=== PATIENT | female | born 1945 | race Caucasian/White ===

== ENCOUNTER → 2016-09-28 | Outpatient (CLI) | payer OTHER ==
[~2016-09-28] VITALS: Ht 160 cm; Wt 71.2 kg
[~2016-09-28] MED LIST: AMBIEN5 MG PO; CALCIUM 600 +1 EAC1 PO; ENDOCET 10-3251 EACH PO; FISH OIL 1,2001 EAC4 PO; LEXAPRO 10 MG T10 M1 PO; LIDODERM 5%1 PATC1 TOP; LOPRESSOR25; LOPRESSOR50 PO; LYRICA 50 MG50 MG PO; LYRICA 75 MG CA75 MG PO; MAGNESIUM400 MG PO; MULTIVITAMINS1 EAC7 PO; NEURONTIN600 MG PO; NORTRIPTYLINE H25 M3 PO; NORTRIPTYLINE H50 MG PO; OMEPRAZOLE40 MG PO; OXYCONTIN CR 2020 M1 PO; OXYCONTIN10 M1 PO; OXYCONTIN20 M1 PO; OXYCONTIN20 MG PO; OXYCONTIN30 MG PO; PERCOCET 10-321 EACH PO; PERCOCET 7.5-31 EACH PO; SUPER B COMPLE1 EAC2 PO; TOPROL XL25 MG PO; VITAMIN B 12 PO; VITAMIN D10000 UNIT PO
--- NOTE | ~2016-09-28 | HPC ---
[facility] [place] [address] PAIN MANAGEMENT CONSULTATION Name: THIEN MAIER Marcos Room #: REG [facility]..#: [id number] Admission: 09/28/16 Attend Phys: Colin Doyle DO Discharge: Date of : 47 Report #: [id number] THIS REPORT FOR: //name// CC: Colin Quinteros MD DATE OF SERVICE: 09/28/2016 REFERRING PHYSICIAN: Concetta Quinteros M.D. CHIEF COMPLAINT: Postherpetic neuralgia. HISTORY OF PRESENT ILLNESS: As you know, the patient is a very pleasant 71-year-old female who returns today in followup visit for continuation of medication therapy. She is placing pain score 4/10. States her pain is constant, tenderness in sensation, exacerbated with stretch and light touch and improves with medications. She is denying any specific changes in her overall pain. She does feel the medications working beneficially, providing upwards of 80% improvement in symptoms. She returns today requesting refill on the medication for the next 3 months. ALLERGIES: SULFA. CURRENT MEDICATIONS: Lyrica 75 mg p.o. at bedtime, Percocet 10/325 one tab every 8 hours p.r.n for pain, gabapentin 600 mg 2 tabs p.o. q.a.m. and 3 tabs p.o. at bedtime, Lexapro 10 mg per day, metoprolol 50 mg twice a day and zolpidem 5 mg p.o. at bedtime. SOCIAL HISTORY: The patient denies tobacco, alcohol or IV or illicit drug use. She is retired, retired years ago, unaccompanied today. PHYSICAL EXAMINATION: VITAL SIGNS: Blood pressure 136/70, pulse 63 and respiratory rate 16 and unlabored. The patient 99% on room air. Height 5 feet 3 inches tall, weight 157 pounds and BMI calculated 27.8. GENERAL: Well developed, well nourished and well hydrated 71-year-old female appearing stated age, placing current pain score at around 4/10. HEENT: Normocephalic and atraumatic. Pupils equal, round and reactive to light. Extraocular muscles are intact. Sclerae nonicteric, without injection. EXTREMITIES: Show no clubbing, no cyanosis and no edema. MUSCULOSKELETAL: There is again palpatory tenderness over the distribution of the previous outbreak of herpes zoster. There is anterior chest wall pain, clavicular area, mainly with some allodynia radiating to the axilla. There is no rash, lesions or ulcerations over the area. No changes in the skin color or texture. [address] [address] PAIN MANAGEMENT CONSULTATION Name: DARRIONTHIEN Room #: REG [facility] [place].#: [id number] Admission: 09/28/16 Attend Phys: Colin Doyle DO Discharge: Date of : 46 Report #: [id number] ASSESSMENT: 1. Postherpetic neuralgia. 2. Chronic intractable pain. 3. Opioid dependency. PLAN: 1. The patient has returned today in followup visit for continuation of medication therapy. The patient feels medications working beneficially for pain control, providing somewhat between 70% and 80% improvement overall pain. She is denying any side effects from medication, wishing to continue the medication at this time. 2. The patient was provided a prescription of Lyrica 75 mg dose 1 tab p.o. at bedtime. It is understood the patient is taking both Lyrica and gabapentin, very similar molecules but without the addition of the Lyrica, the patient's pain was uncontrolled. The low dose of Lyrica added to the gabapentin actually improved the patient's pain and reduced the side effects she was receiving from the gabapentin. She wishes to continue on this medication. She was given a prescription of #30 tablets with five refills six months' worth of medication. 3. The patient was provided a prescription for gabapentin 600 mg dose 1 tab p.o. b.i.d. I have given the patient #150 tablets 2 in the morning and 3 at night. She was given this with 5 refills. 4. The patient was provided a prescription of oxycodone 10/325 one tab p.o. t.i.d., #90 with releases of today, 4 weeks from today, 8 weeks from today and 3 months' worth of medication. 5. The patient and I did have a discussion today about controlled substances specifically, the oxycodone and the Lyrica. We must see the patient on a quarterly basis to fill the oxycodone specifically. We were able to still continue to write Lyrica with multiple refills, but this may ultimately changed as it has been scheduled as a scheduled 4 drug. At present, we can write for long-term therapy this along with the gabapentin. She will need to be seen on a quarterly basis for her opioids. 6. We reviewed the fact that opiate medications are being used to provide analgesia adequate to support activities of daily living, not attempting to achieve a specific pain score on the 0-10 Visual Analog Scale. The current opiate medications are providing sufficient analgesia to allow the patient to participate in activities of daily living. The patient is not exhibiting any aberrant behavior suggestive of drug diversion. The patient is not having any adverse reactions to medications. The patient is not suffering from daytime somnolence or mental acuity changes. The patient is managing opiate-induced constipation with appropriate gjaw-axz-jeeqeax agents and dietary considerations. The patient was counseled on concern for caution with operating a motor vehicle while using opiate medications. A physical exam was performed and the patient's functional status was evaluated. All patients with back pain were advised against the bed rest greater than 4 [facility] [address] [place] [address] PAIN MANAGEMENT CONSULTATION Name: THIEN MAIER Room #: REG [facility]#: [id number] Admission: 09/28/16 Attend Phys: Colin Doyle DO Discharge: Date of : 46 Report #: [id number] days and were advised to return to normal activities. Pain score assessment was noted and the treatment plan was reviewed with the patient. All current medications, both prescribed and OTC were reviewed and reconciled on the electronic medical record. Tobacco screening was accomplished and smoking cessation was advised when indicated. BMI was noted and diet/exercise modification was recommended for all patients following outside normal parameters. I reviewed with the patient today their responsibilities to safeguard prescription medications, reviewed their responsibility to utilize medications only as prescribed by the physician. They are to seek and receive pain medications only from 1 physician group ( [facility]). They are to use 1 pharmacy and keep the clinic informed if they change pharmacies. Their responsibilities include making followup visits in a timely fashion and to avoid abrupt discontinuation of medication usage. Their responsibilities further include bringing their medications (bottles from the pharmacy with residual pills) to the visit for possible confirmation of pill counts and the patient understands it is their responsibility to submit to random drug screens to ensure both that the medications prescribed are present, and that no other controlled substances are present. All prescriptions provided today were generated electronically. <ELECTRONICALLY SIGNED> By: Colin Doyle DO 10/04/16 1243 [id number] 1004 Colin Doyle DO /nt
[2016-09-28 09:05] VITALS: BP 136/70
== END | disposition home or self-care (01) ==
LOC: PAIN 07:06
DX: B02.29 Other postherpetic nervous system involvement (principal); G89.29 Other chronic pain; F11.20 Opioid dependence, uncomplicated

== ENCOUNTER → 2016-12-27 | Outpatient (CLI) | payer OTHER ==
[~2016-12-27] VITALS: Ht 162.6 cm; Wt 70.5 kg
[~2016-12-27] MED LIST changes: +LATISSE5 ML TP; +ZOLPIDEM TART6.25 MG PO
--- NOTE | ~2016-12-27 | HPC ---
[facility] [place] [address] PAIN MANAGEMENT CONSULTATION Name: DARRIONTHIEN Marcos [id number] Admission: 12/27/16 Attend Phys: Colin Doyle DO Discharge: Date of : 46 Report #: [id number] THIS REPORT FOR: //name// CC: Colin Quinteros MD DATE OF SERVICE: 12/27/2016 CHIEF COMPLAINT: Postherpetic neuralgia. HISTORY OF PRESENT ILLNESS: As you know, patient is an extremely pleasant 71-year-old female who returns today in followup visit reporting pain score of no greater than 2/10, states her pain is stinging in tenderness and sensation, exacerbated with stress, touch and improves with medications. She returns today with postherpetic neuralgia pain, well controlled with medication management. The patient states the combination of medications with changes in her lifestyle and reduction in stress has improved her symptoms. She does indicate today she has been experiencing some flushing sensations that come periodically along with some sensation of shortness of air. She could not correlate this to any activity, further evaluation may be necessary. There does appear to be a component of anxiety related issues as the symptoms are not correlated to workouts or increasing activity. It does not appear to be related to any specific factor that may set it off. She does note that when she experiences this she is more highly emotional. This could be more related to anxiety issues. She has discussed this with Dr. Concetta Quinteros. She brought it up today to discuss with us. ALLERGIES: SULFA. CURRENT MEDICATIONS: Lyrica 75 mg p.o. at bedtime, Percocet 10/325 one tab every 8 hours p.r.n. for pain, gabapentin 600 mg 2 tabs p.o. q.a.m., 3 tabs p.o. at bedtime, Lexapro 10 mg per day, metoprolol 50 mg twice a day, zolpidem 5 mg p.o. at bedtime. SOCIAL HISTORY: The patient denies tobacco, IV or illicit drug use. She is retired years ago, unaccompanied today. IMAGING: No new imaging available. PHYSICAL EXAMINATION: VITAL SIGNS: Blood pressure 131/76, pulse 62, respiratory rate 16, unlabored. The patient is 96% on room air. Height 5 feet 4 inches tall, weight 155.4 pounds, BMI calculated 26.7. GENERAL: Well-developed, well-nourished, well-hydrated 71-year-old female appearing stated age. Pain is rated around 2/10. [address] [address] PAIN MANAGEMENT CONSULTATION Name: DARRIONTHIEN Room #: REG [facility]#: [id number] Admission: 12/27/16 Attend Phys: Colin Doyle DO Discharge: Date of : 46 Report #: [id number] HEENT: Normocephalic, atraumatic. Pupils are equal, round, reactive to light. Extraocular muscles are intact. Sclerae are nonicteric without injection. EXTREMITIES: Show no clubbing, no cyanosis, no edema. MUSCULOSKELETAL: The patient does have some hyperalgesia and allodynia over the clavicular area on the anterior chest wall. No zoster noted. ASSESSMENT: 1. Postherpetic neuralgia. 2. Chronic intractable pain. 3. Opioid dependency. PLAN: 1. The patient has returned today in followup visit for continuation of medication therapy. She feels medications are working beneficially for her postherpetic neuralgia pain. She has been on these medications for a very long period of time tolerating the therapy well and has had no side effects prior. She returns for refills of the medication today. 2. The patient was provided a prescription of Percocet 10/325 one tab p.o. q. 8 hours p.r.n. for pain, #90 releases of today, 4 weeks from today, 8 weeks from today. 3. The patient was provided a prescription of Lyrica 75 mg dose 1 tab p.o. at bedtime. I have given the patient #30 with 5 refills. 4. The patient was provided a prescription of Neurontin 600 mg dose 2 tabs in the morning, 3 tabs at night, #150 with 5 refills. 5. The patient has discussed increasing shortness of breath and some diaphoresis and some flushing sensations. She indicates that she has no inciting factor that may have set this off. She is unaware whether or not this is related to any increase in activities. It appears to just strike out of the blue according to the patient and will last for a period of time and then subside. A workup through her PCP has been negative for any chest x-ray findings. Cardiac issues are on the differential, but very low. It does sound as if the patient is experiencing some anxiety related issues with recent loss of her . It appears that these symptoms that she has been experiencing occur when she is thinking about activities that her and her used to participate in and thinking about trips that they had once planned. I believe this is more of an anxiety related issue and possibly still part of the grieving process, but certainly other issues may exist. I would recommend that the patient follow up with her PCP to discuss further. I have asked the patient to monitor when she is experiencing this flushing sensation, shortness of air and a sensation of not feeling well. If she can correlate this to activities or even emotional issues, we may be able to resolve the symptoms by either increasing her anxiolytics or looking further into cardiac related issues. The patient will keep an eye on when this occurs and contact our clinic once she has a clear idea of what may be precipitating her symptoms. Certainly if there is concern of cardiac issues, she will need to follow up with the PCP or be referred to Cardiology. [facility] [address] [place] [address] PAIN MANAGEMENT CONSULTATION Name: THIEN MAIER Room #: REG [facility].#: [id number] Admission: 12/27/16 Attend Phys: Colin Doyle DO Discharge: Date of : 46 Report #: [id number] 6. We will see the patient back in followup visit 3 months from today. She has our contact information if she needs to get hold of us at any time, in particular if she is experiencing this diaphoresis, shortness of air and flushing, I certainly wish to now. By: [id number] Colin Doyel DO /nt
[2016-12-27 11:39] VITALS: BP 131/76
== END ==
LOC: PAIN 07:04
DX: B02.29 Other postherpetic nervous system involvement (principal); F11.20 Opioid dependence, uncomplicated; G89.29 Other chronic pain; F32.9 Major depressive disorder, single episode, unspecified

== ENCOUNTER → 2017-04-18 | Outpatient (CLI) | payer OTHER ==
[~2017-04-18] VITALS: Ht 162.6 cm; Wt 71.2 kg
--- NOTE | ~2017-04-18 | HPC ---
[facility] [place] [address] PAIN MANAGEMENT CONSULTATION Name: THIEN MAIER Room #: REG [facility]#: [id number] Admission: 04/18/17 Attend Phys: Colin Doyle DO Discharge: Date of : 46 Report #: [id number] THIS REPORT FOR: //name// CC: Colin Quinteros MD DATE OF SERVICE: 04/18/2017 DATEE OF SERVICE: 04/18/2017. REFERRING PHYSICIAN: Dr. Concetta Quinteros. CHIEF COMPLAINT: Postherpetic neuralgia. HISTORY OF PRESENT ILLNESS: As you know, the patient is an extremely pleasant 72-year-old female who returns today in followup visit reporting pain score around 2/10. States pain is burning in sensation, exacerbated with stress, touch and certain clothing. It improves with medications. As you are aware, the patient has suffered from postherpetic neuralgia from a fairly significant outbreak of herpes zoster nearly 5 years ago. We have continued to keep the patient on medication for pain control and they are working well, per the patient's report. She returns today in followup visit requesting refill of medications. She does indicate today she has been experiencing some "hot flashes". She has not had evaluation from her primary care physician. She was questioning whether or not medications might be causing these symptoms. ALLERGIES: SULFA. CURRENT MEDICATIONS: Lyrica 75 mg p.o. at bedtime, Percocet 10/325 mg 1 tab p.o. q. 8 hours p.r.n. for pain, gabapentin 600 mg 2 tabs p.o. q.a.m., 3 tabs p.o. at bedtime, Lexapro 10 mg per day, metoprolol 50 mg twice a day, zolpidem 5 mg per day. SOCIAL HISTORY: The patient denies tobacco, IV or illicit drug use. She is retired, retired years ago. She is unaccompanied today. IMAGING: No new imaging available. PHYSICAL EXAMINATION: VITAL SIGNS: Blood pressure 135/70, pulse 59, respiratory rate 16, unlabored, the patient 99% on room air. Height 5 feet 4 inches tall, weight 157 pounds, BMI calculated 26.9. GENERAL: Well developed, well nourished, well-hydrated 72-year-old female appearing her stated age, placing current pain score 2/10. HEENT: Normocephalic, atraumatic. Pupils equal, round, [place] [address] PAIN MANAGEMENT CONSULTATION Name: THIEN MAIER Room #: REG [facility]#: [id number] Admission: 04/18/17 Attend Phys: Colin Doyle DO Discharge: Date of : 46 Report #: [id number] Extraocular muscles are intact. Sclerae nonicteric, without injection. Cranial nerves 2-12 grossly intact. Speech fluent. EXTREMITIES: Show no clubbing, no cyanosis, no edema. MUSCULOSKELETAL: The patient remains with some hyperalgesia and allodynia over the anterior clavicular area on the right, anterior chest wall on the right. There is also some symptoms along the upper portion of the axilla and proximal humerus area. ASSESSMENT: 1. Postherpetic neuralgia. 2. Chronic intractable pain requiring medication management. 3. Opioid dependency. The patient has returned today in followup visit indicating pain level of 2/10. She states medications are working beneficially. She does voice some concerns about some hot flashing that she has been experiencing of late. I do not feel this is due to medication. She has been on this medication for an extremely long period of time. She has not had side effects such as this before. She is also indicating that the symptoms are transient in nature. I am concerned that she may have a hormonal imbalance, is also possibility of a subclinical urinary tract infection, which could also cause symptoms, but I do not feel that the symptoms she is experiencing are medication related. I would recommend further workup with her primary care or [facility] in regards to a chemical imbalances. 4. The patient was provided a prescription of gabapentin 600 mg tablets 3 tabs in the morning, 2 tabs at night 150 with six refills, 6 months' worth of medication. 5. The patient was provided a prescription of Lyrica 75 mg dose 1 tab p.o. at bedtime, #30 with 5 refills, 6 months' worth of medication. 6. The patient was provided a prescription of Percocet 10/325 one tab p.o. q. 8 hours p.r.n. for pain, #90 releases of today, 4 weeks from today, 8 weeks from today, 3 months' worth of medication. 7. We will see the patient back in followup visit in 3 months for ongoing medical therapy and potential changes in treatment. <ELECTRONICALLY SIGNED> By: Colin Doyle DO 04/19/17 0833 [id number] 1056 Colin Doyle DO /nt
[2017-04-18 09:17] VITALS: BP 135/70
== END | disposition home or self-care (01) ==
LOC: PAIN 07:04
DX: B02.29 Other postherpetic nervous system involvement (principal); Z88.8 Allergy status to other drugs, medicaments and biological substances; Z79.899 Other long term (current) drug therapy; G89.29 Other chronic pain; F11.20 Opioid dependence, uncomplicated

== ENCOUNTER → 2017-10-04 | Outpatient (CLI) | payer OTHER ==
[~2017-10-04] VITALS: Ht 162.6 cm; Wt 73.5 kg
[~2017-10-04] MED LIST changes: +BIMATOPROST5 ML TOP; +VOLTAREN GEL 1100 G2 TOP
--- NOTE | ~2017-10-04 | HPC ---
[facility] [place] [address] PAIN MANAGEMENT CONSULTATION Name: DARRIONTHIEN Marcos Room #: REG [facility].#: [id number] Admission: 10/04/17 Attend Phys: Colin Doyle DO Discharge: Date of : 46 Report #: [id number] THIS REPORT FOR: //name// CC: Colin Quinteros DATE OF SERVICE: 10/04/2017 CHIEF COMPLAINT: Postherpetic neuralgia. HISTORY OF PRESENT ILLNESS: As you know, the patient is an extremely pleasant 72-year-old female who returns today in followup visit reporting pain scale of 2/10. States her pain is burning and shooting in sensation, exacerbated with stress, touch. She continues to experience postherpetic neuralgia for which medication management is being provided. The patient states medications with stress relaxation techniques have been effective at controlling her pain. She has been able to go about the majority of activities of daily living without significant pain interference with combination. She returns today for refills of medication. She is denying side effects of somnolence, decreased medication acuity, disorientation, confusion or mental slowing with the medications. ALLERGIES: SULFA. CURRENT MEDICATIONS: Lyrica 75 mg 1 tab p.o. at bedtime, Percocet 10/325 one tab every 8 hours p.r.n. for pain, gabapentin 600 mg 2 tabs p.o. q.a.m. and 3 tabs p.o. at bedtime, Lexapro 10 mg per day, metoprolol 50 mg twice a day, zolpidem 5 mg p.o. at bedtime. SOCIAL HISTORY: The patient denies tobacco, alcohol, IV or illicit drug use. She is retired, retired years ago. She is unaccompanied at today's visit. IMAGING: No new imaging available. PQRS: History of osteoarthritis: No. History of rheumatoid arthritis: No. Pain intensity: 2/10. Fall risk: The patient is not a fall risk. She has not sustained a fall in the last 3 months. She does not use any type of device for ambulation. Blood thinners: None. History of hypertension: No. Opioid therapy greater than 6 weeks: Yes. Opioid contract was signed 06/07/2016. We will renew this each year. Opioid assessment tool: Low risk. Functional assessment: . IMAGING: No new imaging available. PHYSICAL EXAMINATION: VITAL SIGNS: Blood pressure 124/42, pulse 60, respiratory rate 16 and [facility] [address] [place] [address] PAIN MANAGEMENT CONSULTATION Name: THIEN MAIER Room #: [facility]#: [id number] Admission: 10/04/17 Attend Phys: Colin Doyle DO Discharge: Date of : 46 Report #: [id number] unlabored, the patient 99% on room air. Height 5 feet 4 inches tall, weight 162 pounds, BMI calculated at 27.8. GENERAL: Well-developed, well-nourished, well-hydrated 72-year-old female, appears stated age, pain is rated today 2/10. HEENT: Normocephalic, atraumatic. Pupils equal, round, reactive to light. Extraocular muscles are intact. Speech fluent. LUNGS: Clear. No wheeze, rhonchi or rales. CARDIOVASCULAR: Regular. No appreciable gallop, no rub. ABDOMEN: Soft, nontender, nondistended. EXTREMITIES: Show no clubbing, no cyanosis, no edema. INTEGUMENT: No changes in the skin color or texture. There does not appear to be any rashes or lesions. No erythema over the area. There is some allodynia over the distribution of the post-herpetic area. ASSESSMENT: 1. Postherpetic neuralgia 2. Chronic intractable pain. 3. Opioid dependency. PLAN: 1. The patient returns today in followup visit for medication management to address her postherpetic neuralgia. The patient indicates exacerbation of symptoms with increasing stress and emotional issues as well as changes in weather. Overall, the patient states she is doing very well with medication therapy in conjunction with stress relieving techniques that she utilizes at home. We encouraged the patient to continue the stress release issues, also look towards physical therapy exercise programs, which can be assisting in pain control. We also discussed the possibility of utilizing aversion therapies and attempt to continue to irritate the neuropathic area which tends to improve symptoms, this has been shown in very specific cases; would recommend that if she chooses to go this direction then we have her see our cognitive behavioral therapists for assistance. At this point, the patient feels medications and stress relieving processes she is doing at home is working effectively. She has requested refills of medications for the next 3 months. 2. The patient was provided prescription of Lyrica 75 mg dose 1 tab p.o. at bedtime, #30. I have given the patient 5 refills. 3. The patient was provided a prescription of gabapentin 600 mg dose 2 tabs in the morning and 3 tabs at night, #250 with 5 refills. The patient is utilizing both the Lyrica and gabapentin at night as she is finding increased benefit. We have attempted to increase the gabapentin at night and this caused the patient severe dysphoric effects throughout the evening hours and into the morning hours. The addition of the Lyrica though it has a similar activity, reduces those side effects, but maintain the analgesic benefit. This formulation has worked for the patient. We understand that they have very similar mechanisms, but the patient could not tolerate adjustments in either of the medications prior. [address] [address] PAIN MANAGEMENT CONSULTATION Name: DARRIONTHIEN Room #: REG [facility].#: [id number] Admission: 10/04/17 Attend Phys: Colin Doyle DO Discharge: Date of : 47 Report #: [id number] 4. The patient was provided prescription of oxycodone 10 mg dose 1 tab p.o. t.i.d., #90, releases of today, 4 weeks from today, 8 weeks from today, 3 months' worth of medication. 5. We will see the patient back in followup visit in 3 months for medical therapy. If she does wish to look forward to cognitive training as well as training with desensitization, we can send the patient for that evaluation as well. She can contact the clinic at any time. <ELECTRONICALLY SIGNED> By: Colin Doyle DO 10/11/17 0902 0826 1002 Colin Doyle DO /nt
[2017-10-04 10:01] VITALS: BP 124/42
== END ==
LOC: PAIN 06:56
DX: B02.29 Other postherpetic nervous system involvement (principal); G89.29 Other chronic pain; F11.90 Opioid use, unspecified, uncomplicated; Z88.2 Allergy status to sulfonamides

== ENCOUNTER → 2018-04-25 | Outpatient (CLI) | payer OTHER ==
[~2018-04-25] VITALS: Ht 162.6 cm; Wt 68.6 kg
[~2018-04-25] MED LIST changes: -BIMATOPROST5 ML TOP; -VOLTAREN GEL 1100 G2 TOP
--- NOTE | ~2018-04-25 | HPC ---
[facility] [place] [address] PAIN MANAGEMENT CONSULTATION Name: DARRIONTHIEN Room #: REG [facility]#: [id number] Admission: 04/25/18 Attend Phys: Colin Doyle DO Discharge: Date of : 47 Report #: [id number] THIS REPORT FOR: //name// CC: Colin Quinteros DATE OF SERVICE: 04/25/2018 CHIEF COMPLAINT: Postherpetic neuralgia. HISTORY OF PRESENT ILLNESS: As you know, the patient is a very pleasant 73-year-old female who returns today in followup visit with continued postherpetic neuralgia. She is placing pain today at a level of around 7/10. She states that recent weather changes and some increasing stress has exacerbated her postherpetic neuralgia. She returns today in followup visit for medication management. She indicates no side effects to medication. She is currently taking 300 mg of gabapentin in the morning and 600 mg at night, this is in conjunction with her pregabalin at 75 mg p.o. at bedtime, the combination providing good benefit. She is also requesting refill on the oxycodone 10/325 that she takes no more than 3 a day. She returns today in followup visit for refill of therapy. ALLERGIES: SULFA. CURRENT MEDICATIONS: Pregabalin 75 mg once a day, Percocet 10/325 three times a day, gabapentin 600 mg in the morning and 1200 mg at night, Latisse 3 mL topical once a day, metoprolol 50 mg twice a day. SOCIAL HISTORY: The patient denies tobacco, alcohol, IV or illicit drug use. She is retired. She is unaccompanied today. PQRS: The patient has no known osteoarthritis. No rheumatoid arthritis. She places current pain intensity at 7/10. She is not a fall risk, has not had a fall in the last 3 months. She is not on blood thinner. She is not treated for hypertension. She is on opioids and has been for greater than 6 weeks. She has a low opioid risk potential for addiction. Functional assessment indicates level of 11/70, mild interference. K-TRACS and MO-TRACS were completed. No concerning entries in the opioid tracking system. PHYSICAL EXAMINATION: VITAL SIGNS: Blood pressure 140/71, pulse 60, respiratory rate 16 and unlabored. The patient is 100% on room air. Height 5 feet 4 inches tall, weight 151.2 pounds, BMI calculated 25.6. [facility] [address] [place] [address] PAIN MANAGEMENT CONSULTATION Name: THIEN MAIER Room #: [facility]#: [id number] Admission: 04/25/18 Attend Phys: Colin Doyle DO Discharge: Date of : 46 Report #: [id number] GENERAL: Well-developed, well-nourished, well-hydrated 73-year-old female appearing stated age, placing current pain score around 7/10. HEENT: Normocephalic, atraumatic. Pupils equal, round, reactive to light. Extraocular muscles are intact. NEUROLOGIC: Speech fluent. The patient deemed an excellent historian. EXTREMITIES: Show no clubbing, no cyanosis, no edema. MUSCULOSKELETAL: The patient does have again allodynia over the area of her herpetic lesion outbreak. There is no skin color changes, no temperature changes, heat, no rubor over the area. Upper extremity strength, lower extremity strength is symmetrical. ASSESSMENT: 1. Postherpetic neuralgia. 2. Opioid dependency. 3. Chronic intractable pain. PLAN: 1. The patient returns today in followup visit, requesting refill on medications. She feels medications are working beneficially for pain control. The patient is denying side effects to medication including somnolence, decreased mental acuity, disorientation, confusion, mental slowing suicidal ideation, increasing depression, constipation. She requests refills on all medications at current dosing. 2. The patient was provided prescription of Percocet 10/325 one tab every 8 hours p.r.n. for pain, I have given the patient number 90, releases of today, 4 weeks from today, 8 weeks from today, 3 months' worth of medication. We reviewed the fact that opiate medications are being used to provide analgesia adequate to support activities of daily living, not attempting to achieve a specific pain score on the 0-10 Visual Analog Scale. The current opiate medications are providing sufficient analgesia to allow the patient to participate in activities of daily living. The patient is not exhibiting any aberrant behavior suggestive of drug diversion. The patient is not having any adverse reactions to medications. The patient is not suffering from daytime somnolence or mental acuity changes. The patient is managing opiate-induced constipation with appropriate dnab-tcc-iahcjpj agents and dietary considerations. The patient was counseled on concern for caution with operating a motor vehicle while using opiate medications. A physical exam was performed and the patient's functional status was evaluated. All patients with back pain were advised against the bed rest greater than 4 days and were advised to return to normal activities. Pain score assessment was noted and the treatment plan was reviewed with the patient. All current medications, both prescribed and OTC were reviewed and reconciled on the electronic medical record. Tobacco screening was accomplished and smoking cessation was advised when indicated. BMI was noted and diet/exercise [address] [address] PAIN MANAGEMENT CONSULTATION Name: THIEN MAIER Room #: REG [facility]#: [id number] Admission: 04/25/18 Attend Phys: Colin Doyle DO Discharge: Date of : 46 Report #: [id number] modification was recommended for all patients following outside normal parameters. I reviewed with the patient today their responsibilities to safeguard prescription medications, reviewed their responsibility to utilize medications only as prescribed by the physician. They are to seek and receive pain medications only from 1 physician group ( [facility]). They are to use 1 pharmacy and keep the clinic informed if they change pharmacies. Their responsibilities include making followup visits in a timely fashion and to avoid abrupt discontinuation of medication usage. Their responsibilities further include bringing their medications (bottles from the pharmacy with residual pills) to the visit for possible confirmation of pill counts and the patient understands it is their responsibility to submit to random drug screens to ensure both that the medications prescribed are present, and that no other controlled substances are present. All prescriptions provided today were generated electronically. 3. The patient was provided a prescription of Lyrica 75 mg dose 1 tab p.o. at bedtime, number 30, I have provided 5 refills, 6 months' worth of medication. 4. The patient was provided a prescription of gabapentin 600 mg dose 1 tab in the morning, 2 tabs at night, given number 90 tablets, 5 refills. 5. We will see the patient back in followup visit in 3 months for her ongoing opioid medication management. By: [id number] Colin Doyle DO /primo
[2018-04-25 10:51] VITALS: BP 140/71
== END ==
LOC: PAIN 06:59
DX: B02.29 Other postherpetic nervous system involvement (principal); G89.4 Chronic pain syndrome; F11.20 Opioid dependence, uncomplicated; Z79.899 Other long term (current) drug therapy

== ENCOUNTER → 2018-07-18 | Outpatient (CLI) | payer OTHER ==
[~2018-07-18] VITALS: Ht 162.6 cm; Wt 69.4 kg
[~2018-07-18] MED LIST changes: +BIMATOPROST5 ML TOP; +VOLTAREN GEL 1100 G2 TOP
--- NOTE | ~2018-07-18 | HPC ---
[facility] [place] [address] PAIN MANAGEMENT CONSULTATION Name: THIEN MAIER Marcos Room #: REG [facility].#: [id number] Admission: 07/18/18 Attend Phys: Colin Doyle DO Discharge: Date of : 46 Report #: [id number] THIS REPORT FOR: //name// CC: Colin Quinteros MD DATE OF SERVICE: 07/18/2018 REFERRING PHYSICIAN: Concetta Quinteros M.D. CHIEF COMPLAINT: Postherpetic neuralgia and left knee pain. HISTORY OF PRESENT ILLNESS: As you know, the patient is a very pleasant 73-year-old female who returns today in followup visit with continued postherpetic neuralgia pain. She feels medications are working beneficially for pain control despite the elevated pain report of 7-8/10 today. The patient is now complaining of left knee pain after a recent injury to the knee itself. She states she was ambulating normally when she felt a twisting sensation in her left knee and immediate medial knee pain. She states the pain has been present for about a week, does not appear to be improving. She wishes to discuss this left knee pain but also to receive refills on her medications she uses for postherpetic neuralgia. ALLERGIES: SULFA. CURRENT MEDICATIONS: Pregabalin 75 mg once a day, Percocet 10/325 three times a day, gabapentin 600 mg morning and 1200 mg at night, Latisse topical once a day and metoprolol 50 mg twice a day. SOCIAL HISTORY: The patient denies tobacco, alcohol or IV or illicit drug use. She is retired, retired years ago, unaccompanied today. IMAGING DATA: No new imaging available. PQRS: The patient has no known osteoarthritis. No rheumatoid arthritis. She places pain intensity today at 7-8/10. She is not a fall risk, has not had a fall in the last 3 months. She is on a blood thinner. She is treated for hypertension. She is on opioids and has been for greater than 6 weeks. She is a low risk for opioid addiction. Functional assessment pain impact , mild interference. PHYSICAL EXAMINATION: VITAL SIGNS: Blood pressure 124/73, pulse 63 and respiratory rate 14 and unlabored. The patient is 97% on room air. Height 5 feet 4 inches tall, weight 153 pounds and BMI calculated 26.2. [place] [address] PAIN MANAGEMENT CONSULTATION Name: THIEN MAIER Room #: REG [facility]#: [id number] Admission: 07/18/18 Attend Phys: Colin Doyle DO Discharge: Date of : 46 Report #: [id number] GENERAL: Well-developed, well-nourished, well-hydrated 73-year-old female appearing her stated age, placing current pain score at 7-8/10. HEENT: Normocephalic and atraumatic. Pupils equal, round and reactive to light. EXTREMITIES: Show no clubbing, no cyanosis and no edema. MUSCULOSKELETAL: There is some palpatory tenderness over the medial aspect of the left knee when compared to the right. There is no noted edema. No tenderness in the popliteal fossa. Active and passive range of motion of the knee causes mild intensification of pain, medial aspect just above the tibial plateau. Gait is mildly antalgic favoring left lower extremity over right due to the pain generator on medial aspect of the knee. Drawer tests are negative, both anterior and posterior medial collateral and lateral collateral ligaments appear intact. ASSESSMENT: 1. Postherpetic neuralgia. 2. Left knee pain. 3. Opioid dependency. 4. Chronic intractable pain. PLAN: 1. The patient returns today in followup visit requesting refill of medications for her postherpetic neuralgia. She states that the combination of medications do provide good benefit and efficacy. She wishes to continue the medication at current dosing. She is denying side effects of somnolence, decreased mental acuity, disorientation, confusion or constipation with their use. 2. We reviewed the fact that opiate medications are being used to provide analgesia adequate to support activities of daily living, not attempting to achieve a specific pain score on the 0-10 Visual Analog Scale. The current opiate medications are providing sufficient analgesia to allow the patient to participate in activities of daily living. The patient is not exhibiting any aberrant behavior suggestive of drug diversion. The patient is not having any adverse reactions to medications. The patient is not suffering from daytime somnolence or mental acuity changes. The patient is managing opiate-induced constipation with appropriate vkyz-evv-rjnoehi agents and dietary considerations. The patient was counseled on concern for caution with operating a motor vehicle while using opiate medications. A physical exam was performed and the patient's functional status was evaluated. All patients with back pain were advised against the bed rest greater than 4 days and were advised to return to normal activities. Pain score assessment was noted and the treatment plan was reviewed with the patient. All current medications, both prescribed and OTC were reviewed and reconciled on the electronic medical record. Tobacco screening was accomplished and smoking cessation was advised when indicated. BMI was noted and diet/exercise modification was recommended for all patients following outside normal [facility] [address] [place] [address] PAIN MANAGEMENT CONSULTATION Name: THIEN MAIER Room #: REG [facility]#: [id number] Admission: 07/18/18 Attend Phys: Colin Doyle DO Discharge: Date of : 46 Report #: [id number] parameters. I reviewed with the patient today their responsibilities to safeguard prescription medications, reviewed their responsibility to utilize medications only as prescribed by the physician. They are to seek and receive pain medications only from 1 physician group ( [facility]). They are to use 1 pharmacy and keep the clinic informed if they change pharmacies. Their responsibilities include making followup visits in a timely fashion and to avoid abrupt discontinuation of medication usage. Their responsibilities further include bringing their medications (bottles from the pharmacy with residual pills) to the visit for possible confirmation of pill counts and the patient understands it is their responsibility to submit to random drug screens to ensure both that the medications prescribed are present, and that no other controlled substances are present. All prescriptions provided today were generated electronically. 3. The patient was provided prescription of gabapentin 600 mg dose 1 tab in the morning, 2 tabs at night, #95 refills, 6 months' worth of medication. 4. The patient was provided a prescription of Lyrica 75 mg dose 1 tab p.o. at bedtime, #30, five refills, 6 months' worth of medication. 5. The patient was provided a refill prescription of oxycodone 10/325 mg dose 1 tab p.o. q. 8 hours p.r.n. for pain, #90 releases of today, 4 weeks from today, 8 weeks from today, 3 months' worth of medication. The patient was advised today. She is taking approximately 45 mg of morphine equivalents a day well under the CDCs recommended no greater than 90 morphine equivalents a day. We will continue the medication at current dosing. 6. To address the patient's left knee pain, we discussed options for treatment including topical agents applied directly. We discussed intraarticular knee injections and ultimately referral to Orthopedics. At present, the patient wants to try conservative treatment in the form of topical agents. If this does not improve her symptoms, then look forward to an intraarticular knee injection. The patient and I discussed this at length today the following was prescribed for the left knee. 7. The patient was provided prescription of diclofenac gel 1% solution, topically up to 4 times a day. I have given the patient 1 tube, 2 refills, 3 months' worth of medication, she is to apply as directed. She will watch for any side effects with its use. 8. We will see the patient back in followup visit in 3 months for medication therapy, earlier if she wishes to discuss left intraarticular knee injection. <ELECTRONICALLY SIGNED> By: Colin Doyle DO 07/24/18 [id number] Colin Doyle DO /nt
[2018-07-18 10:44] VITALS: BP 124/73
== END ==
LOC: PAIN 07:13
DX: M25.562 Pain in left knee (principal); B02.29 Other postherpetic nervous system involvement; G89.4 Chronic pain syndrome; F11.20 Opioid dependence, uncomplicated

== ENCOUNTER → 2018-10-23 | Outpatient (CLI) | payer OTHER ==
[~2018-10-23] VITALS: Ht 162.6 cm; Wt 69.8 kg
[2018-10-23 10:46] VITALS: BP 145/70
--- NOTE | 2018-10-23 11:01 | NUR ---
Pain Clinic Assessment: 1. History of Osteoarthritis: Not Applicable History of Rheumatoid Arthritis: Not Applicable 2. Height: 5 ft. 4 in. 162.6 cm. Weight: 153.8 lb. oz. 69.763 kg. Patient's BMI: 26.4 3. Vital Signs: BP: 145/70 Pulse: 66 Resp: 16 Temp: 02 Sat: 100 ECG Mon: 4. Pain Intensity: 2 5. Fall Risk: Dizziness: N Needs help standing or walking: N Fallen in the last 3 months: N Fall risk comments: 6. Patient on Blood Thinner: None 7. History of Hypertension: N 8. Opioid Therapy greater than 6 weeks: Y Opiate Contract Signed: 06/07/16 9. Risk Assessment Tool Provided: LOW RISK / 10. Functional Assessment Tool: 11. Recreational Drug Use: Never Drug Type: Tobacco Use: Never Smoker Tobacco Type: Amount or Packs/day: How Many Years: Alcohol Use: Yes Frequency: Quant:
--- NOTE | 2018-10-24 07:40 | HPC ---
[facility] [address] [address] PAIN MANAGEMENT CONSULTATION Name: DARRIONTHIEN Marcos Room #: REG [facility]#: [id number] Admission: 10/23/18 Attend Phys: Monique Cooley Discharge: Date of : 47 Report #: [id number] THIS REPORT FOR: //name// CC: Monique Cooley Concetta Quinteros DATE OF SERVICE: 10/23/2018 CHIEF COMPLAINT: Postherpetic neuralgia. HISTORY OF PRESENT ILLNESS: As you know, this is a very pleasant 73-year-old female who returns to the pain clinic today for refill of her medication, management for her continued postherpetic neuralgia. She tells me that she tried to decrease her pain medicine from oxycodone 10/325 3 times a day to 2 times a day. A few weeks ago, she tells me that about midday, she starts feeling stinging feeling under her arm on the right side and also in the right part of her chest. She still would like to possibly decrease her medications that she said what she was trying was not working and she would like some direction and how possibly to do this. The patient tells me that her neuropathic medicines are very helpful in relieving her pain. She does rate her pain at 2 today. She tells me that she has been very active and had been traveling and when she was trying to decrease her medicine, she was not able to do as much as she normally would like to. ALLERGIES: SULFA. MEDICATIONS: Current list of medications, Lyrica 75 mg at bedtime, Percocet 10/325 three times a day, gabapentin 600 mg 1 in the morning and 2 at night, metoprolol 50 mg twice daily. The patient's PQRS, 1. The patient has no known osteoarthritis or rheumatoid arthritis. 2. Height is 5 feet 4 inches, weight is 153, BMI is 26.4. 3. Vital signs. Blood pressure 145/70, pulse is 66, respirations 16, oxygen level is 100%. Pain score is 2/10. 4. Fall risk. Denies dizziness. Does not need help walking or standing. Has not fallen in the last 3 months. 5. The patient is not on any blood thinners, does take medicine for hypertension. 6. Opioid therapy is greater than 6 weeks; therefore, no opiate signed contract is on the chart. 7. Risk assessment tool is low. Her functional assessment is . 8. Recreational drug use, she denies. She is not a smoker and occasionally drinks alcohol. 9. We did check the prescription monitoring system. The patient is filling appropriately for her medications and is due today for her narcotic medications. [address] [address] PAIN MANAGEMENT CONSULTATION Name: THIEN MAIER Room #: [facility]#: [id number] Admission: 10/23/18 Attend Phys: Monique Cooley Discharge: Date of : 46 Report #: [id number] The patient tells me she does safeguard her medicines, especially when she is traveling. PHYSICAL EXAMINATION: GENERAL: This is a well-developed, well-nourished, well-hydrated 73-year-old female who appears her stated age. Placing her pain score today at 2/3. HEENT: Normocephalic, atraumatic. Pupils equal, round and reactive to light. MUSCULOSKELETAL: There is some tenderness or stinging feeling for the patient under her right arm. When her pain has intensified, she also has some pain in her right chest when it increases. The patient does walk with a slightly antalgic gait. EXTREMITIES: Her lower extremity muscle strength is judged to be 5/5 in all major muscle groups. ASSESSMENT: 1. Postherpetic neuralgia. 2. Opioid dependency. 3. Chronic intractable pain. We reviewed the fact that opiate medications are being used to provide analgesia adequate to support activities of daily living, not attempting to achieve a specific pain score on the 0-10 Visual Analog Scale. The current opiate medications are providing sufficient analgesia to allow the patient to participate in activities of daily living. The patient is not exhibiting any aberrant behavior suggestive of drug diversion. The patient is not having any adverse reactions to medications. The patient is not suffering from daytime somnolence or mental acuity changes. The patient is managing opiate-induced constipation with appropriate kjlz-fyl-noaexct agents and dietary considerations. The patient was counseled on concern for caution with operating a motor vehicle while using opiate medications. A physical exam was performed and the patient's functional status was evaluated. All patients with back pain were advised against the bed rest greater than 4 days and were advised to return to normal activities. Pain score assessment was noted and the treatment plan was reviewed with the patient. All current medications, both prescribed and OTC were reviewed and reconciled on the electronic medical record. Tobacco screening was accomplished and smoking cessation was advised when indicated. BMI was noted and diet/exercise modification was recommended for all patients following outside normal parameters. I reviewed with the patient today their responsibilities to safeguard prescription medications, reviewed their responsibility to utilize medications only as prescribed by the physician. They are to seek and receive pain medications only from 1 physician group ([facility]). They are to use 1 pharmacy and keep the clinic informed if they change pharmacies. Their [address] [address] PAIN MANAGEMENT CONSULTATION Name: THIEN MAIER Room #: REG [facility]#: [id number] Admission: 10/23/18 Attend Phys: Monique Akinstushar Discharge: Date of : 47 Report #: [id number] responsibilities include making followup visits in a timely fashion and to avoid abrupt discontinuation of medication usage. Their responsibilities further include bringing their medications (bottles from the pharmacy with residual pills) to the visit for possible confirmation of pill counts and the patient understands it is their responsibility to submit to random drug screens to ensure both that the medications prescribed are present, and that no other controlled substances are present. All prescriptions provided today were generated electronically. PLAN: We discussed treatment options with the patient today. The patient tells me that she has been hearing things on the news about all the opioid crisis and had talked to a friend who is a nurse and thinks that maybe she should try to decrease her opioids. I did explain to the patient that per the CDC guidelines and their calculation that her current MME would be 45 MME, which is below their guidelines, but if the patient would like to try and decrease her medicines, we would gladly try to assist her with that process. The patient tells me she is going on a trip next week and would like to wait another month until she is back from that trip before decreasing her medications. So, today, after much discussion, we decided to give her 1 prescription of oxycodone 10/325, #90 for refill today. The second and third prescriptions will be Percocet 7.5 one p.o. q. 8 hours, #90. This will decrease her MME from 45 to 33 MME per day, but, instead of cutting out 1 entire pill per day, like the patient had initially tried, this will only decrease each pill by 3 mg. The patient will try this in her second month. If she, after a couple of weeks, is not successful or her pain is worsening, then she will call and we will exchange her prescriptions for her. 2. The patient does not need her Lyrica and gabapentin refilled today, though she tells me that they are very helpful in relieving her neuropathic pain that she has. 3. The patient will follow up in our clinic in 3 months' time. She will call for an appointment if problems arise earlier. 4. The patient seen in collaboration with Dr. Colin Doyle who also did see the patient today. <ELECTRONICALLY SIGNED> By: Monique Cooley 10/24/18 [id number] [id number] Monique Cooley /primo
== END ==
LOC: PAIN 06:50
DX: B02.29 Other postherpetic nervous system involvement (principal); G89.29 Other chronic pain; F11.20 Opioid dependence, uncomplicated; Z79.899 Other long term (current) drug therapy; Z88.2 Allergy status to sulfonamides

== ENCOUNTER → 2019-01-08 | Outpatient (CLI) | payer OTHER ==
[~2019-01-08] VITALS: Ht 162.6 cm; Wt 71.2 kg
[2019-01-08 09:30] VITALS: BP 126/71
--- NOTE | 2019-01-08 09:43 | NUR ---
Pain Clinic Assessment: 1. History of Osteoarthritis: Not Applicable History of Rheumatoid Arthritis: Not Applicable 2. Height: 5 ft. 4 in. 162.6 cm. Weight: 157.0 lb. oz. 71.215 kg. Patient's BMI: 26.9 3. Vital Signs: BP: 126/71 Pulse: 76 Resp: 16 Temp: 02 Sat: 97 ECG Mon: 4. Pain Intensity: 6 5. Fall Risk: Dizziness: N Needs help standing or walking: N Fallen in the last 3 months: N Fall risk comments: 6. Patient on Blood Thinner: None 7. History of Hypertension: N 8. Opioid Therapy greater than 6 weeks: Y Opiate Contract Signed: 06/07/16 9. Risk Assessment Tool Provided: LOW RISK /3 10. Functional Assessment Tool: 11. Recreational Drug Use: Never Drug Type: Tobacco Use: Never Smoker Tobacco Type: Amount or Packs/day: How Many Years: Alcohol Use: Yes Frequency: Monthly Quant: 1
--- NOTE | 2019-01-09 14:35 | HPC ---
[facility] [address] [place] [address] PAIN MANAGEMENT CONSULTATION Name: DARRIONTHIEN [facility] [id number] Admission: 01/08/19 ������������������ Attend Phys: Monique Cooley Discharge: ������������������ Date of : 47 Report #: [id number] THIS REPORT FOR: //name// CC: Monique Cooley Concetta Quinteros DATE OF SERVICE: 01/08/2019 CHIEF COMPLAINT: Postherpetic neuralgia. HISTORY OF PRESENT ILLNESS: This is a very pleasant 73-year-old that returns to the pain clinic today for refill of her medications. She tells me that her pain score is 6/10. In the last appointments, we tried to decrease her oxycodone from 10/325-7.5 for the last 2 months. The patient tells me she did take the 7.5 for about a month and a half, but her pain was worse. She then had some leftover tens that she supplemented and took various strengths throughout the day, no more than 3 pills a day and would like to go back to 10/325. She feels that her pain was better controlled when she was taking 3 oxycodone 10 tablets a day. The patient tells me that her pain is mostly in her right upper arm and her chest area. It is burning, stinging feeling from her shingles. Her medication is very helpful. She denies any problems with constipation. She uses some iola-riu-zcttnje supplements that she finds very effective. She does not experience any daytime sleepiness and would just like a refill of her medications. ALLERGIES: SULFA. CURRENT MEDICATIONS: Oxycodone 7.5/325 three times a day, Lyrica 75 mg daily, gabapentin 600 mg in the morning and 1200 mg at night, metoprolol 50 mg b.i.d. PQRS: 1. She has no known osteoarthritis. She was told she has osteopenia, denies any rheumatoid arthritis. 2. Height is 5 feet 4 inches, weight is 157, BMI is 26. 3. VITAL SIGNS: 126/71, pulse is 76, respirations 16, oxygen sat is 97. 4. Pain score 6/10. 5. The patient denies dizziness, does not need help walking or standing and has not fallen in the last 3 months. 6. The patient does not take any blood thinners or hypertension medicines. 7. Opioid therapy is greater than 6 weeks; therefore, an opioid signed contract is on the chart. 8. Risk assessment tool is low. Functional assessment is . 9. Recreational drug use. She denies. She is not a smoker and occasionally drinks alcohol. [address] [address] PAIN MANAGEMENT CONSULTATION Name: DARRIONTHIEN Room #: REG [facility] Mikael#: [id number] Admission: 01/08/19 ������������������ Attend Phys: Monique Cooley Discharge: ������������������ Date of : 47 Report #: [id number] We did check the prescription monitoring system. The patient is not quite due to fill her oxycodone today and is due for her other medications. She tells me that she does safeguard her medicines at all time. We will check a drug screen on this patient at the next visit. PHYSICAL EXAMINATION: GENERAL: This is a well-developed, well-nourished 73-year-old female who appears her stated age, placing her current pain score at 6/10. Her speech is fluent. HEENT: Normocephalic, atraumatic. Pupils equal, round and reactive to light. MUSCULOSKELETAL: She has some tenderness in her right upper arm and some burning in her right chest, this is noticed, especially tells me when her pain medicine is wearing off. Her lower extremity strength judged to be 5/5 in all major muscle groups bilaterally and symmetrically. ASSESSMENT: 1. Postherpetic neuralgia. 2. Opioid dependency. 3. Chronic intractable pain. We reviewed the fact that opiate medications are being used to provide analgesia adequate to support activities of daily living, not attempting to achieve a specific pain score on the 0-10 Visual Analog Scale. The current opiate medications are providing sufficient analgesia to allow the patient to participate in activities of daily living. The patient is not exhibiting any aberrant behavior suggestive of drug diversion. The patient is not having any adverse reactions to medications. The patient is not suffering from daytime somnolence or mental acuity changes. The patient is managing opiate-induced constipation with appropriate xbvq-fsu-thdvfud agents and dietary considerations. The patient was counseled on concern for caution with operating a motor vehicle while using opiate medications. A physical exam was performed and the patient's functional status was evaluated. All patients with back pain were advised against the bed rest greater than 4 days and were advised to return to normal activities. Pain score assessment was noted and the treatment plan was reviewed with the patient. All current medications, both prescribed and OTC were reviewed and reconciled on the electronic medical record. Tobacco screening was accomplished and smoking cessation was advised when indicated. BMI was noted and diet/exercise modification was recommended for all patients following outside normal parameters. I reviewed with the patient today their responsibilities to safeguard prescription medications, reviewed their responsibility to utilize medications only as prescribed by the physician. They are to seek and receive pain [facility] [address] [place] [address] PAIN MANAGEMENT CONSULTATION Name: THIEN MAIER Room #: REG [facility]#: [id number] Admission: 01/08/19 ������������������ Attend Phys: Monique Cooley Discharge: ������������������ Date of : 46 Report #: [id number] medications only from 1 physician group ( [facility]). They are to use 1 pharmacy and keep the clinic informed if they change pharmacies. Their responsibilities include making followup visits in a timely fashion and to avoid abrupt discontinuation of medication usage. Their responsibilities further include bringing their medications (bottles from the pharmacy with residual pills) to the visit for possible confirmation of pill counts and the patient understands it is their responsibility to submit to random drug screens to ensure both that the medications prescribed are present, and that no other controlled substances are present. All prescriptions provided today were generated electronically. PLAN: 1. We discussed treatment options with the patient today. She tells me that though she was trying to decrease her oxycodone, she felt that she was having more pain, was able to do less with her decrease of that medicine. Her current MME per the CDC guidelines will now be 45, which is still below the guidelines for morphine milliequivalent per day. Scripts given today for oxycodone 10/325, #90 for release today, 4-week and 8-week. 2. The patient also was given scripts for gabapentin 600 mg 1 in the morning, 2 at night, #90 with 5 additional refills for a total of 6 months and Lyrica 75 mg every day, #30 with 5 additional refills for 6 months. 3. The patient is getting ready to go on a trip this summer to [place]. We reminded her to keep her meds with her at all times and keep them safeguarded when she is traveling. 4. The patient is seen with Dr. Colin Doyle who also collaborated care and she will make an appointment to see him in the next 3 months. ��������������������������������������������� <ELECTRONICALLY SIGNED> ���������������������������������������� By: Monique Cooley ��������������������������������������������� 01/09/19 1435 [id number] Monique Cooley /primo
== END ==
LOC: PAIN 06:59
DX: B02.29 Other postherpetic nervous system involvement (principal); F11.20 Opioid dependence, uncomplicated; G89.4 Chronic pain syndrome; Z79.899 Other long term (current) drug therapy

== ENCOUNTER → 2019-04-03 | Outpatient (CLI) | payer OTHER ==
[~2019-04-03] VITALS: Ht 162.6 cm; Wt 70.3 kg
[2019-04-03 09:56] VITALS: BP 126/65
--- NOTE | 2019-04-03 10:09 | NUR ---
Pain Clinic Assessment: 1. History of Osteoarthritis: Not Applicable History of Rheumatoid Arthritis: Not Applicable 2. Height: 5 ft. 4 in. 162.6 cm. Weight: 155.0 lb. oz. 70.308 kg. Patient's BMI: 26.6 3. Vital Signs: BP: 126/65 Pulse: 64 Resp: 16 Temp: 02 Sat: 100 ECG Mon: 4. Pain Intensity: 6 5. Fall Risk: Dizziness: N Needs help standing or walking: N Fallen in the last 3 months: Y Fall risk comments: 6. Patient on Blood Thinner: None 7. History of Hypertension: N 8. Opioid Therapy greater than 6 weeks: Y Opiate Contract Signed: 06/07/16 9. Risk Assessment Tool Provided: LOW RISK / 10. Functional Assessment Tool: 11. Recreational Drug Use: Never Drug Type: Tobacco Use: Never Smoker Tobacco Type: Amount or Packs/day: How Many Years: Alcohol Use: Yes Frequency: Monthly Quant: 1
--- NOTE | 2019-04-04 08:05 | HPC ---
[facility] [address] [place] [address] PAIN MANAGEMENT CONSULTATION Name: DARRIONTHIEN Marcos [facility] [id number] Admission: 04/03/19 ������������������ Attend Phys: Monique Cooley Discharge: ������������������ Date of : 46 Report #: [id number] THIS REPORT FOR: //name// CC: Monique Cooley Concetta Quinteros DATE OF SERVICE: 04/03/2019 CHIEF COMPLAINT: Postherpetic neuralgia. HISTORY OF PRESENT ILLNESS: This is a very pleasant 74-year-old female who returns to the pain clinic today for refill of her medications. She tells me that her pain score is a 6/10 today. She does have right upper arm and right chest area postherpetic neuralgia pain that she does also have tailbone pain. 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 It is slowly healing, but when she sits a long time as she did yesterday on a recent trip to [place], she tells me that it does increase her pain level. The patient describes her pain as a burning, stinging pain, but medications are very helpful. She denies any problems with constipation as long as she continues to take fiber chewables daily. ALLERGIES: SULFA. CURRENT LIST OF MEDICATIONS: Gabapentin 600 mg 1 in the morning and 2 at night, Lyrica 75 mg daily, oxycodone 10/325 three times a day, metoprolol 50 mg b.i.d. PQRS: 1. She has no known osteoarthritis. She has osteopenia, but denies any rheumatoid arthritis. 2. Height is 5 feet 4 inches, weight is 155, and BMI is 26. 3. Vital signs: Blood pressure 126/65, pulse is 64, respirations 16, oxygen sat is 100. 4. Pain score 6/10. 5. Denies dizziness, does not need help walking or standing, has fallen in the last 3 months. 6. The patient is not on any blood thinners, does not take medicine for hypertension. 7. Opioid therapy is greater than 6 weeks; therefore, an opioid signed contract is on the chart. Risk assessment tool is low. Functional assessment is . 8. Recreational drug use, she denies. She is not a smoker and occasionally drinks alcohol. We did check the prescription monitoring system. The patient is filling appropriately for her medications in a timely fashion. She is [place] [address] PAIN MANAGEMENT CONSULTATION Name: THIEN MAIER Room #: REG [facility] Mikael#: [id number] Admission: 04/03/19 ������������������ Attend Phys: Monique Cooley Discharge: ������������������ Date of : 46 Report #: [id number] PHYSICAL EXAMINATION: GENERAL: This is a well-developed, well-nourished 74-year-old female who appears her stated age, placing her current pain score at 6/10. She is alert and orientated. HEENT: Normocephalic, atraumatic. Pupils equal, round and reactive to light. MUSCULOSKELETAL: Slight burning in her right upper arm and right chest. Complains of tailbone pain with sitting in certain chairs. Her lower extremity strength judged to be 5/5 in all major muscle groups bilaterally and are symmetrical in tone. ASSESSMENT: 1. Postherpetic neuralgia. 2. Tailbone pain. 3. Chronic intractable pain. 4. Opioid dependency. We reviewed the fact that opiate medications are being used to provide analgesia adequate to support activities of daily living, not attempting to achieve a specific pain score on the 0-10 Visual Analog Scale. The current opiate medications are providing sufficient analgesia to allow the patient to participate in activities of daily living. The patient is not exhibiting any aberrant behavior suggestive of drug diversion. The patient is not having any adverse reactions to medications. The patient is not suffering from daytime somnolence or mental acuity changes. The patient is managing opiate-induced constipation with appropriate gxdc-ejw-behanow agents and dietary considerations. The patient was counseled on concern for caution with operating a motor vehicle while using opiate medications. A physical exam was performed and the patient's functional status was evaluated. All patients with back pain were advised against the bed rest greater than 4 days and were advised to return to normal activities. Pain score assessment was noted and the treatment plan was reviewed with the patient. All current medications, both prescribed and OTC were reviewed and reconciled on the electronic medical record. Tobacco screening was accomplished and smoking cessation was advised when indicated. BMI was noted and diet/exercise modification was recommended for all patients following outside normal parameters. I reviewed with the patient today their responsibilities to safeguard prescription medications, reviewed their responsibility to utilize medications only as prescribed by the physician. They are to seek and receive pain medications only from 1 physician group ([facility]). They are to use 1 pharmacy and keep the clinic informed if they change pharmacies. Their responsibilities include making followup visits in a timely fashion and to avoid abrupt discontinuation of medication usage. Their responsibilities further [facility] [address] [place] [address] PAIN MANAGEMENT CONSULTATION Name: THIEN MAIER Room #: REG [facility] Y[facility]f#: [id number] Admission: 04/03/19 ������������������ Attend Phys: Monique Cooley Discharge: ������������������ Date of : 46 Report #: [id number] include bringing their medications (bottles from the pharmacy with residual pills) to the visit for possible confirmation of pill counts and the patient understands it is their responsibility to submit to random drug screens to ensure both that the medications prescribed are present, and that no other controlled substances are present. All prescriptions provided today were generated electronically. PLAN: 1. We discussed treatment options with the patient today. The patient is doing quite well with her postherpetic neuralgia pain. Scripts given for oxycodone 10/325, #90 for release today, 4-week and 8-week release. This places her at 45 morphine milligram equivalent according to the CDC guidelines. The patient is therefore seen every 3 months. 2. The patient is not needing gabapentin and Lyrica scripts today. She should have plenty of refills to last 3 more months. If this is found not to be true, then we will call this in. 3. The patient is seen in collaboration today with Dr. Colin Doyle who collaborated care. ��������������������������������������������� <ELECTRONICALLY SIGNED> ���������������������������������������� By: Monique Cooley ��������������������������������������������� 04/04/19 0805 [id number] Monique Cooley /nt
== END ==
LOC: PAIN 06:51
DX: B02.29 Other postherpetic nervous system involvement (principal); M85.80 Other specified disorders of bone density and structure, unspecified site; F11.20 Opioid dependence, uncomplicated; G89.4 Chronic pain syndrome; M53.3 Sacrococcygeal disorders, not elsewhere classified; Z88.2 Allergy status to sulfonamides; Z79.899 Other long term (current) drug therapy

== ENCOUNTER → 2019-07-02 | Outpatient (CLI) | payer OTHER ==
[~2019-07-02] VITALS: Ht 162.6 cm; Wt 64.4 kg
[~2019-07-02] MED LIST changes: +GABAPENTIN600 M1 PO
[2019-07-02 08:30] VITALS: BP 129/70
--- NOTE | 2019-07-02 08:35 | NUR ---
Pain Clinic Assessment: 1. History of Osteoarthritis: Not Applicable History of Rheumatoid Arthritis: Not Applicable 2. Height: 5 ft. 4 in. 162.6 cm. Weight: 142.0 lb. oz. 64.411 kg. Patient's BMI: 24.4 3. Vital Signs: BP: 129/70 Pulse: 65 Resp: 14 Temp: 02 Sat: 99 ECG Mon: 4. Pain Intensity: 1-2 5. Fall Risk: Dizziness: N Needs help standing or walking: N Fallen in the last 3 months: Y Fall risk comments: 6. Patient on Blood Thinner: None 7. History of Hypertension: N 8. Opioid Therapy greater than 6 weeks: Y Opiate Contract Signed: 06/07/16 9. Risk Assessment Tool Provided: LOW RISK / 10. Functional Assessment Tool: 11. Recreational Drug Use: Never Drug Type: Tobacco Use: Never Smoker Tobacco Type: Amount or Packs/day: How Many Years: Alcohol Use: Yes Frequency: Monthly Quant: 1
--- NOTE | 2019-07-02 13:54 | HPC ---
[facility] [address] [address] PAIN MANAGEMENT CONSULTATION Name: DARRIONTHIEN Marcos Room #: REG [facility] Mikael#: [id number] Admission: 07/02/19 Attend Phys: Monique Cooley Discharge: Date of : 47 Report #: [id number] THIS REPORT FOR: //name// CC: Monique GILES MD DATE OF SERVICE: 07/02/2019 CHIEF COMPLAINT: Postherpetic neuralgia. HISTORY OF PRESENT ILLNESS: This is a very pleasant 74-year-old female who returns to the pain clinic today for medication management that she uses to help treat her postherpetic neuralgia of her right upper arm and right chest area. She reports a pain score of 1-2 today. It is a burning, stinging feeling, especially when she does not take her medications, but she feels that the regimen she is on is very beneficial in controlling most of her pain and would like refills today. We did discuss the patient's ongoing constipation issues. She is going to have a colonoscopy in about a month. She is going to discuss it further with them. Currently, she has been taking some Colace and then has been recently started on MiraLax, but that caused her to have diarrhea, so she is only taking Colace. We did discuss options such as Senokot and opioid-induced constipation medications of Movantik and Symproic. The patient is going to discuss this further with her GI doctor in the next month. ALLERGIES: SULFA. CURRENT LIST OF MEDICATIONS: Oxycodone 10/325 t.i.d. p.r.n., gabapentin 600 mg 1 in the morning and 2 at night, Lyrica 75 mg daily and metoprolol 50 mg b.i.d. PQRS: 1. She has no known osteoarthritis or rheumatoid arthritis. She does have osteopenia. 2. Height is 5 feet 4 inches, weight is 142. BMI is 24. 3. Vital signs 129/70, pulse is 65, respirations 14, oxygen sat is 99. 4. Pain score is 1-2. 5. Denies dizziness, does not need help walking or standing, has not fallen in the last 3 months. 6. The patient is not on any blood thinners, does take medicine for hypertension. 7. Opioid therapy is greater than 6 weeks; therefore, an opioid signed contract is on the chart. Risk assessment tool is low. Functional assessment is . 8. Recreational drug use, she denies. She is not a smoker and occasionally [address] [address] PAIN MANAGEMENT CONSULTATION Name: THIEN MAIER Room #: REG [facility].#: [id number] Admission: 07/02/19 Attend Phys: Monique Cooley Discharge: Date of : 47 Report #: [id number] drinks alcohol. We did check the prescription monitoring system. The patient is filling appropriately for her medications. We will check a random drug screen on her at the next visit. PHYSICAL EXAMINATION: GENERAL: This is a well-developed, well-nourished 74-year-old female who appears her stated age, placing her current pain score at 1-2. She is alert and orientated and a good historian. HEENT: Normocephalic, atraumatic. Pupils equal, round and reactive to light. MUSCULOSKELETAL: She has tingling and burning in her right upper arm and right chest wall. Her lower extremity strength judged to be 5/5 in all major muscle groups. They are symmetrical in tone. She walks with a normal gait. ASSESSMENT: 1. Postherpetic neuralgia. 2. Chronic intractable pain. 3. Opioid dependency. 4. Constipation, possibly opioid induced. We reviewed the fact that opiate medications are being used to provide analgesia adequate to support activities of daily living, not attempting to achieve a specific pain score on the 0-10 Visual Analog Scale. The current opiate medications are providing sufficient analgesia to allow the patient to participate in activities of daily living. The patient is not exhibiting any aberrant behavior suggestive of drug diversion. The patient is not having any adverse reactions to medications. The patient is not suffering from daytime somnolence or mental acuity changes. The patient is managing opiate-induced constipation with appropriate aaog-uvv-cuggjuv agents and dietary considerations. The patient was counseled on concern for caution with operating a motor vehicle while using opiate medications. A physical exam was performed and the patient's functional status was evaluated. All patients with back pain were advised against the bed rest greater than 4 days and were advised to return to normal activities. Pain score assessment was noted and the treatment plan was reviewed with the patient. All current medications, both prescribed and OTC were reviewed and reconciled on the electronic medical record. Tobacco screening was accomplished and smoking cessation was advised when indicated. BMI was noted and diet/exercise modification was recommended for all patients following outside normal parameters. I reviewed with the patient today their responsibilities to safeguard prescription medications, reviewed their responsibility to utilize medications only as prescribed by the physician. They are to seek and receive pain [address] [address] PAIN MANAGEMENT CONSULTATION Name: THIEN MAIER Room #: REG [facility]#: [id number] Admission: 07/02/19 Attend Phys: Monique Cooley Discharge: Date of : 47 Report #: [id number] medications only from 1 physician group ( [facility]). They are to use 1 pharmacy and keep the clinic informed if they change pharmacies. Their responsibilities include making followup visits in a timely fashion and to avoid abrupt discontinuation of medication usage. Their responsibilities further include bringing their medications (bottles from the pharmacy with residual pills) to the visit for possible confirmation of pill counts and the patient understands it is their responsibility to submit to random drug screens to ensure both that the medications prescribed are present, and that no other controlled substances are present. All prescriptions provided today were generated electronically. PLAN: 1. We discussed treatment options with the patient today. The patient is doing quite well on her regimen. Scripts given today for oxycodone 10/325, #90, for today for an 8-week. This places her at 45 morphine mEq according to the CDC guidelines. 2. Gabapentin 600 mg, #90, with 5 additional refills, and Lyrica 75 mg, #30, with 5 additional refills. 3. We did discuss her ongoing constipation issues. The patient has tried Colace and MiraLax, which have not been beneficial. She will try Senna. I instructed her that it is jvze-ysk-cvraxml. She is getting ready to go on a 2-week trip, so I encouraged her to get this medication prior to traveling. She will also discuss with her GI doctor after her colonoscopy. 4. The patient will see him in 3 months as needed for medications. The patient is seen in collaboration today with Dr. Colin Doyle. <ELECTRONICALLY SIGNED> By: Monique Cooley 07/02/19 1354 [id number] Monique Cooley /primo
== END ==
LOC: PAIN 06:44
DX: B02.29 Other postherpetic nervous system involvement (principal); G89.4 Chronic pain syndrome; F11.20 Opioid dependence, uncomplicated; K59.03 Drug induced constipation; T40.2X5A Adverse effect of other opioids, initial encounter; Y92.89 Other specified places as the place of occurrence of the external cause; Z88.2 Allergy status to sulfonamides; Z79.899 Other long term (current) drug therapy

== ENCOUNTER → 2019-10-16 | Outpatient (CLI) | payer OTHER ==
[~2019-10-16] VITALS: Ht 162.6 cm; Wt 67.1 kg
[2019-10-16 13:35] VITALS: BP 130/69
--- NOTE | 2019-10-17 09:30 | HPC ---
[facility] [address] [place] [address] PAIN MANAGEMENT CONSULTATION Name: THIEN MAIER Marcos Room #: REG HENRIETTA Herman.#: [id number] Admission: 10/16/19 Attend Phys: Monique Cooley Discharge: Date of : 47 Report #: [id number] THIS REPORT FOR: cc: Concetta Quinteros MD, Sara A. MD Hocker,Monique PANCHAL ~ THIS REPORT FOR: //name// DATE OF SERVICE: 10/16/2019 CHIEF COMPLAINT: Postherpetic neuralgia. HISTORY OF PRESENT ILLNESS: This is a very pleasant 74-year-old female who returns to the pain clinic today for a refill of her medications that she uses to help treat her postherpetic neuralgia that continues to be bothersome on her right upper arm and right chest. Today, she is complaining of some tailbone discomfort due to a fall last summer. She is reporting a pain score of 1-2 today and occasional burning and stingy pain when she does not take her medications, but she feels that the Lyrica which is now generic and much cheaper as well as her gabapentin are very beneficial as well as taking her pain pills occasionally. ALLERGIES: SULFA. MEDICATIONS: Oxycodone 10/325 t.i.d. p.r.n., gabapentin 600 mg in the morning and 1200 mg at bedtime, Lyrica 75 mg daily and metoprolol. PQRS: 1. Denies any rheumatoid or osteoarthritis. 2. Height is 5 feet 4 inches, weight is 142, BMI is 24. 3. Vital signs 129/70, pulse is 65, respirations 14, oxygen sat is 99. 4. Pain score 1-2. 5. Denies dizziness, does not need help walking or standing, has fallen in the last 3 months. 6. The patient is not on any blood thinners, does not take medicines for hypertension. 7. Opiate therapy is greater than 6 weeks; therefore, an opioid signed contract is on the chart. Risk assessment tool is low. Functional assessment is . 8. Recreational drug use, she denies. She is not a smoker and occasionally drinks alcohol. According to the prescription monitoring system, the patient is filling appropriately for her medications. She is due to fill those medications today. PHYSICAL EXAMINATION: [facility] [address] [place] [address] PAIN MANAGEMENT CONSULTATION Name: DARRIONTHIEN Room #: REG [facility].#: [id number] Admission: 10/16/19 Attend Phys: Monique Cooley Discharge: Date of : 47 Report #: [id number] GENERAL: This is alert and orientated 74-year-old female who appears her stated age, placing her current pain score at 1/10-2/10 today. She is a good historian. HEENT: Normocephalic, atraumatic. Pupils equal, round and reactive to light. MUSCULOSKELETAL: She has a burning, tingling sensation in her right arm that radiates into her right chest wall. She has pain in her tailbone, with no radicular symptoms. This is tender when sitting. Her lower extremity strength judged to be 5/5 in all major muscle groups. She walks with a normal gait. ASSESSMENT: 1. Postherpetic neuralgia. 2. Chronic intractable pain. 3. Opioid dependency. We reviewed the fact that opiate medications are being used to provide analgesia adequate to support activities of daily living, not attempting to achieve a specific pain score on the 0-10 Visual Analog Scale. The current opiate medications are providing sufficient analgesia to allow the patient to participate in activities of daily living. The patient is not exhibiting any aberrant behavior suggestive of drug diversion. The patient is not having any adverse reactions to medications. The patient is not suffering from daytime somnolence or mental acuity changes. The patient is managing opiate-induced constipation with appropriate ptnc-ffm-mcydswd agents and dietary considerations. The patient was counseled on concern for caution with operating a motor vehicle while using opiate medications. PLAN: 1. We discussed treatment options with the patient today. At the patient's last visit, she was complaining of some constipation. She did see a GI doctor who started her on daily Colace. The patient states that has been beneficial and is no longer having any constipation issues. 2. The patient feels that her medications are quite beneficial, is requesting a 90-day prescription fill of her gabapentin and Lyrica. It is cheaper for her to fill it and now that Lyrica is generic that has greatly reduced her cost of medications. 3. We will refill her Percocet 10/325, #90, for today for an 8-week; Lyrica 75 mg, #90, with 2 additional refills and gabapentin 600 mg #270 with 2 additional refills. These were all sent electronically. The patient was seen in collaboration with Dr. Colin Doyle and Dr. Hwang did visit with the patient as well today. Thank you for adding this dictation. The patient will return in 3 months. <ELECTRONICALLY SIGNED> By: Monique Cooley 10/17/19 0930 [id number] Monique Cooley /primo
== END ==
LOC: PAIN 06:52
DX: B02.29 Other postherpetic nervous system involvement (principal); G89.29 Other chronic pain; F11.20 Opioid dependence, uncomplicated; Z88.2 Allergy status to sulfonamides; Z79.899 Other long term (current) drug therapy

== ENCOUNTER → 2019-12-31 | Outpatient (CLI) | payer OTHER ==
[~2019-12-31] VITALS: Ht 162.6 cm; Wt 67.9 kg
[2019-12-31 10:05] VITALS: BP 113/70
--- NOTE | 2019-12-31 10:19 | NUR ---
Pain Clinic Assessment: 1. History of Osteoarthritis: Not Applicable History of Rheumatoid Arthritis: Not Applicable 2. Height: 5 ft. 4 in. 162.6 cm. Weight: 149.6 lb. oz. 67.858 kg. Patient's BMI: 25.7 3. Vital Signs: BP: 113/70 Pulse: 65 Resp: 16 Temp: 02 Sat: 100 ECG Mon: 4. Pain Intensity: 2 5. Fall Risk: Dizziness: N Needs help standing or walking: N Fallen in the last 3 months: N Fall risk comments: 6. Patient on Blood Thinner: None 7. History of Hypertension: N 8. Opioid Therapy greater than 6 weeks: Y Opiate Contract Signed: 06/07/16 9. Risk Assessment Tool Provided: LOW RISK 2 10. Functional Assessment Tool: 11. Recreational Drug Use: Never Drug Type: Tobacco Use: Never Smoker Tobacco Type: Amount or Packs/day: How Many Years: Alcohol Use: Yes Frequency: Quant:
--- NOTE | 2020-01-01 12:25 | HPC ---
[facility] [place] [place] [address] PAIN MANAGEMENT CONSULTATION Name: THIEN MAIER Room #: REG HENRIETTA Herman.#: [id number] Admission: 12/31/19 Attend Phys: Colin Doyle DO Discharge: Date of : 47 Report #: [id number] THIS REPORT FOR: cc: Concetta Quinteros MD, Sara A. MD Johnson, James E. DO ~ DATE OF SERVICE: 12/31/2019 CHIEF COMPLAINT: Postherpetic neuralgia. HISTORY OF PRESENT ILLNESS: As you know, the patient is a very pleasant 74-year-old female who has returned today in followup visit with continued postherpetic neuralgia pain. She believes her pain is well controlled with medications. She is denying side effects of sleepiness, disorientation, confusion, mental slowing or constipation with the combination therapy. She is placing pain today at 2/10. She returns today in followup visit requesting refill on medications. She is very pleased with response to medication therapy, which allows her to go about her activities of daily living without significant pain interference. She returns today requesting refills for the next 3 months. ALLERGIES: SULFA. CURRENT MEDICATIONS: Oxycodone 10/325 mg one tab p.o. q. 8 hours p.r.n. pain, gabapentin 600 mg morning and 1200 mg at night, Lyrica 75 mg p.o. q.a.m. and metoprolol 50 mg once a day, bimatoprost 1 drop each eye per day. SOCIAL HISTORY: The patient denies tobacco, alcohol, IV or illicit drug use. She is retired, retired years ago. She is unaccompanied today. IMAGING: No new imaging available. PQRS: The patient has no known osteoarthritis or rheumatoid arthritis. She places current pain score at 2/10. She is not a fall risk, has not had a fall in last 3 months. She is not on blood thinners, but is treated for hypertension. She is on chronic opioids with a low opioid addiction potential. Pain impact score is 11/70 indicating mild interference of daily activities secondary to pain. PHYSICAL EXAMINATION: VITAL SIGNS: Blood pressure 113/70, pulse 65, respiratory rate 16 and unlabored. The patient is 100% on room air. Height 5 feet 4 inches tall, weight 149.6 pounds, BMI calculated 25.7. GENERAL: Well-developed, well-nourished, well-hydrated 74-year-old female appearing stated age, pain is rated today around 2/10. HEENT: Normocephalic, atraumatic. Pupils equal, round, reactive to light. [address] [address] PAIN MANAGEMENT CONSULTATION Name: DARRIONTHIEN B Room #: REG HENRIETTA Youssef#: [id number] Admission: 12/31/19 Attend Phys: Colin Doyle DO Discharge: Date of : 47 Report #: [id number] Extraocular muscles are intact. NEUROLOGIC: Speech is fluent. The patient deemed a good historian. EXTREMITIES: Show no clubbing, no cyanosis, no edema. MUSCULOSKELETAL: The patient has allodynia over the distribution of her herpetic lesions noted in the past. She experiences mainly chest wall pain on the right as well as right arm pain in a dermatomal distribution consistent with her postherpetic neuralgia. There is no active rash or lesions. ASSESSMENT: 1. Postherpetic neuralgia. 2. Chronic intractable pain. 3. Opioid dependency. 4. Complicated medication management utilizing scheduled medications. PLAN: 1. We reviewed the fact that opiate medications are being used to provide analgesia adequate to support activities of daily living, not attempting to achieve a specific pain score on the 0-10 Visual Analog Scale. The current opiate medications are providing sufficient analgesia to allow the patient to participate in activities of daily living. The patient is not exhibiting any aberrant behavior suggestive of drug diversion. The patient is not having any adverse reactions to medications. The patient is not suffering from daytime somnolence or mental acuity changes. The patient is managing opiate-induced constipation with appropriate qxhc-qej-yzdwjyn agents and dietary considerations. The patient was counseled on concern for caution with operating a motor vehicle while using opiate medications. A physical exam was performed and the patient's functional status was evaluated. All patients with back pain were advised against the bed rest greater than 4 days and were advised to return to normal activities. Pain score assessment was noted and the treatment plan was reviewed with the patient. All current medications, both prescribed and OTC were reviewed and reconciled on the electronic medical record. Tobacco screening was accomplished and smoking cessation was advised when indicated. BMI was noted and diet/exercise modification was recommended for all patients following outside normal parameters. I reviewed with the patient today their responsibilities to safeguard prescription medications, reviewed their responsibility to utilize medications only as prescribed by the physician. They are to seek and receive pain medications only from 1 physician group ([facility]). They are to use 1 pharmacy and keep the clinic informed if they change pharmacies. Their responsibilities include making followup visits in a timely fashion and to avoid abrupt discontinuation of medication usage. Their responsibilities further include bringing their medications (bottles from the pharmacy with residual pills) to the visit for possible confirmation of pill counts and the patient [address] [address] PAIN MANAGEMENT CONSULTATION Name: THIEN MAIER Room #: REG [facility]#: [id number] Admission: 12/31/19 Attend Phys: Colin Doyle DO Discharge: Date of : 47 Report #: [id number] understands it is their responsibility to submit to random drug screens to ensure both that the medications prescribed are present, and that no other controlled substances are present. All prescriptions provided today were generated electronically. 2. The patient was provided a prescription of gabapentin 600 mg dose. She is to take 1 tab in the morning, 2 tablets at night. She was given #270 tablets, which is a 3-month prescription and one refill. Prescription was sent via e-scribe to local pharmacy. 3. The patient was provided a prescription for Lyrica 75 mg dose. She takes 1 tab in the morning for neuropathic pain control. She was given #90 tablets with 1 refill, which is 6 months' worth of medication. 4. The patient was provided a prescription of Percocet 10/325 one tab p.o. q. 8 hours p.r.n. for pain. I have given the patient #90 tablets to release today, 4 weeks from today, 8 weeks from today, 3 months' worth of medication. 5. We will see the patient back in followup visit in 3 months for medication management, earlier if adjustments need to be made or discussion of other treatment options are requested. We are pleased to see the patient is doing well with medications. We will see her back in followup visit in 3 months. <ELECTRONICALLY SIGNED> By: Colin Doyle DO 01/01/20 1225 1240 1250 Colin Doyle DO /nt
== END ==
LOC: PAIN 09:02
DX: B02.29 Other postherpetic nervous system involvement (principal); G89.29 Other chronic pain; Z79.891 Long term (current) use of opiate analgesic; Z79.01 Long term (current) use of anticoagulants; Z79.1 Long term (current) use of non-steroidal anti-inflammatories (NSAID); Z79.899 Other long term (current) drug therapy; Z88.2 Allergy status to sulfonamides

== ENCOUNTER → 2020-04-01 | Outpatient (CLI) | payer OTHER ==
[~2020-04-01] VITALS: Ht 162.6 cm; Wt 67.9 kg
[2020-04-01 12:40] VITALS: BP 123/63
--- NOTE | 2020-04-01 12:52 | NUR ---
Pain Clinic Assessment: 1. History of Osteoarthritis: Not Applicable History of Rheumatoid Arthritis: Not Applicable 2. Height: 5 ft. 4 in. 162.6 cm. Weight: 149.8 lb. oz. 67.949 kg. Patient's BMI: 25.7 3. Vital Signs: BP: 123/63 Pulse: 68 Resp: 16 Temp: 02 Sat: 98 ECG Mon: 4. Pain Intensity: 3-4 5. Fall Risk: Dizziness: N Needs help standing or walking: N Fallen in the last 3 months: N Fall risk comments: 6. Patient on Blood Thinner: None 7. History of Hypertension: N 8. Opioid Therapy greater than 6 weeks: Y Opiate Contract Signed: 06/07/16 9. Risk Assessment Tool Provided: LOW RISK 2 10. Functional Assessment Tool: 11. Recreational Drug Use: Never Drug Type: Tobacco Use: Never Smoker Tobacco Type: Amount or Packs/day: How Many Years: Alcohol Use: Yes Frequency: Monthly Quant: 1
--- NOTE | 2020-04-02 08:25 | HPC ---
[facility] [address] [place] [address] PAIN MANAGEMENT CONSULTATION Name: THIEN MAIER Room #: REG [facility].#: [id number] Admission: 04/01/20 Attend Phys: Monique Cooley Discharge: Date of : 47 Report #: [id number] THIS REPORT FOR: cc: Concetta Quinteros MD, Sara A. MD Hocker,Monique PANCHAL ~ CC: Colin Doyle DO DATE OF SERVICE: 04/01/2020 CHIEF COMPLAINT: Postherpetic neuralgia. HISTORY OF PRESENT ILLNESS: As you know, this is a very pleasant 74-year-old female who returns to the pain clinic today for followup to continue medication management for her postherpetic neuralgia that she experiences in her chest and right arm. Today, she is complaining of a stinging and burning feeling, rating her pain score at 3-4. She feels that if she is late in taking her medications her symptoms do not start to reappear, but when she does take her medications on a schedule, her pain is very well controlled. She denies any problems with constipation or daytime somnolence as a result of her medications. She feels that she is able to be as active as she would like to be under her current regimen. ALLERGIES: SULFA. CURRENT LIST OF MEDICATIONS: Lyrica 75 mg daily, gabapentin 600 mg in the morning and 1200 mg at night, oxycodone 10/325 p.r.n., and metoprolol. PQRS: 1. She has no known osteoarthritic or rheumatoid arthritis. 2. Height is 5 feet 4 inches, weight is 149, BMI is 25. 3. Vital signs 123/63, pulse is 68, respirations 16, oxygen sat is 98. 4. Pain score 3-4. 5. Denies dizziness, does not need help walking or standing, has not fallen in the last 3 months. 6. The patient is not on any blood thinners or medicine for hypertension. Opioid therapy is greater than 6 weeks; therefore, an opioid signed contract is on the chart. Risk assessment is low. Functional assessment is . 7. Recreational drug use, she denies. She is not a smoker and occasionally drinks alcohol. According to the prescription monitoring system, the patient is filling in a timely fashion. She is due to fill her medications next week. We will check a random drug screen on this patient today as it has been greater than a year. PHYSICAL EXAMINATION: [address] [address] PAIN MANAGEMENT CONSULTATION Name: THIEN MAIER Room #: REG Peter Youssef#: [id number] Admission: 04/01/20 Attend Phys: Monique Cooley Discharge: Date of : 47 Report #: [id number] GENERAL: This is a well-developed, well-nourished, well-hydrated 74-year-old female who appears her stated age, placing her current pain score today at 3-4. HEENT: Normocephalic, atraumatic. Pupils equal, round and reactive to light. She is wearing a mask. NEUROLOGIC: Speech is fluent. She is a good historian. EXTREMITIES: No signs of clubbing, no cyanosis, no edema. MUSCULOSKELETAL: Experiences mainly chest wall pain on the right side that does radiate into her right arm in the dermatomal distribution of her postherpetic neuralgia. She has some allodynia noted with no lesions present at this time. ASSESSMENT: 1. Postherpetic neuralgia. 2. Chronic intractable pain. 3. Opioid dependency. 4. Complicated medical management utilizing scheduled medicines. We reviewed the fact that opiate medications are being used to provide analgesia adequate to support activities of daily living, not attempting to achieve a specific pain score on the 0-10 Visual Analog Scale. The current opiate medications are providing sufficient analgesia to allow the patient to participate in activities of daily living. The patient is not exhibiting any aberrant behavior suggestive of drug diversion. The patient is not having any adverse reactions to medications. The patient is not suffering from daytime somnolence or mental acuity changes. The patient is managing opiate-induced constipation with appropriate icml-vox-onwqdxx agents and dietary considerations. The patient was counseled on concern for caution with operating a motor vehicle while using opiate medications. PLAN: 1. We discussed treatment options with the patient today. We will continue her on her current medication regimen. She does not need her Lyrica or gabapentin refills today. There should be one additional refill at her [facility] pharmacy, but the patient was instructed to call if they state there is not. 2. We will refill her Percocet 10/325, #90, for today, 4-week and 8-week release. 3. The patient will call for an appointment as needed when she is nearing her refills. The patient is seen today in collaboration with Dr. Colin Doyle. <ELECTRONICALLY SIGNED> By: Monique Cooley 04/02/20 0825 [id number] Monique Cooley /nt
== END ==
LOC: PAIN 07:07
PROVIDERS: ATTEND Clinical Nurse Specialist Adult Health
DX: B02.29 Other postherpetic nervous system involvement (principal); G89.29 Other chronic pain; F11.20 Opioid dependence, uncomplicated; Z88.2 Allergy status to sulfonamides; Z79.899 Other long term (current) drug therapy

== ENCOUNTER → 2020-07-07 | Outpatient (CLI) | payer OTHER ==
[~2020-07-07] VITALS: Ht 162.6 cm; Wt 68.5 kg
[~2020-07-07] MED LIST changes: +NASACORT10.8 ML NASAL; +OMEPRAZOLE 20 M20 M1 PO
[2020-07-07 08:24] VITALS: BP 135/70
--- NOTE | 2020-07-07 08:41 | NUR ---
Pain Clinic Assessment: 1. History of Osteoarthritis: Not Applicable History of Rheumatoid Arthritis: Not Applicable 2. Height: 5 ft. 4 in. 162.6 cm. Weight: 151.0 lb. oz. 68.493 kg. Patient's BMI: 25.9 3. Vital Signs: BP: 135/70 Pulse: 62 Resp: 14 Temp: 02 Sat: 100 ECG Mon: 4. Pain Intensity: 2; 6-7 IN EVENING 5. Fall Risk: Dizziness: N Needs help standing or walking: N Fallen in the last 3 months: N Fall risk comments: 6. Patient on Blood Thinner: None 7. History of Hypertension: N 8. Opioid Therapy greater than 6 weeks: Y Opiate Contract Signed: 06/07/16 9. Risk Assessment Tool Provided: LOW RISK 2 10. Functional Assessment Tool: 11. Recreational Drug Use: Never Drug Type: Tobacco Use: Never Smoker Tobacco Type: Amount or Packs/day: How Many Years: Alcohol Use: Yes Frequency: Quant:
--- NOTE | 2020-07-07 14:05 | HPC ---
[facility] [address] [place] [address] PAIN MANAGEMENT CONSULTATION Name: THIEN MAIER Room #: REG [facility]ENRIETTA Mikael#: [id number] Admission: 07/07/20 Attend Phys: Monique Cooley Discharge: Date of : 47 Report #: [id number] CC: Monique Sims MD DATE OF SERVICE: 07/07/2020 CHIEF COMPLAINT: Postherpetic neuralgia. HISTORY OF PRESENT ILLNESS: As you know, this is a very pleasant 75-year-old female who returns to the pain clinic to discuss her medications that she uses to help treat her ongoing postherpetic neuralgia in her right chest wall that does occasionally radiate into her right arm. Today, she is reporting a pain score currently at 2/10, though it does increase in the early evening hours to 6-7. She states just recently she has had more burning between 6 and 7 PM and is wondering what options we may suggest for this increase in her pain. She does report taking her pain medication space throughout the day as well as her gabapentin. Typically, she does find these beneficial in decreasing some of her overall burning sensation. The patient has reported she has been taking some vitamin D3 and is also wondering about taking zinc as they recommend for the COVID virus. She has been staying safe at home and does wear a mask at all times when she is out per her report. ALLERGIES: SULFA. CURRENT LIST OF MEDICATIONS: Omeprazole 20 mg, Percocet 10/325 t.i.d., Lyrica 75 mg at bedtime, gabapentin 600 mg in the morning and 1200 mg at night, losartan, vitamin D3, probiotic, multivitamin. PQRS: 1. She has known arthritic changes. 2. Height is 5 feet 4 inches, weight is 151. BMI is 25. 3. Vital signs 135/70, pulse is 62, respirations 14, oxygen sat is 100. 4. Pain score is 2-6-7 depending on the time of day. 5. Denies dizziness, does not need help walking or standing, has not fallen in the last 3 months. 6. The patient is not on any blood thinners or medicine for hypertension. 7. Opioid therapy is greater than 6 weeks; therefore, an opioid signed contract is on the chart. 8. Risk assessment is low. Functional assessment is . 9. Recreational drug use, she denies. She is not a smoker and occasionally drinks alcohol. According to the prescription monitoring system, the patient is due to fill her medications this week, filling them in a timely fashion. Her morphine milliequivalent is 45 MME per day. There is a recent drug screen on the chart that is appropriate for her medications as well. PHYSICAL EXAMINATION: GENERAL: This is alert and orientated 75-year-old who appears younger than her stated age, placing her pain score from 2-6 today. HEENT: Normocephalic, atraumatic. Extraocular eye muscles are intact. Mucous membranes are moist. She is wearing a mask. MUSCULOSKELETAL: Speech is fluent. She is a good historian. EXTREMITIES: No clubbing, no cyanosis, no edema. MUSCULOSKELETAL: Pain is on the right chest wall that radiates into her arm occasionally in the dermatomal distribution of postherpetic neuralgia. She has some allodynia noted. No present lesions. ASSESSMENT: 1. Postherpetic neuralgia. 2. Chronic intractable pain. 3. Opioid dependency. 4. Complicated medical management, utilizing scheduled medications. We reviewed the fact that opiate medications are being used to provide analgesia adequate to support activities of daily living, not attempting to achieve a specific pain score on the 0-10 Visual Analog Scale. The current opiate medications are providing sufficient analgesia to allow the patient to participate in activities of daily living. The patient is not exhibiting any aberrant behavior suggestive of drug diversion. The patient is not having any adverse reactions to medications. The patient is not suffering from daytime somnolence or mental acuity changes. The patient is managing opiate-induced constipation with appropriate hodz-fna-hlezbxs agents and dietary considerations. The patient was counseled on concern for caution with operating a motor vehicle while using opiate medications. A physical exam was performed and the patient's functional status was evaluated. All patients with back pain were advised against the bed rest greater than 4 days and were advised to return to normal activities. Pain score assessment was noted and the treatment plan was reviewed with the patient. All current medications, both prescribed and OTC were reviewed and reconciled on the electronic medical record. Tobacco screening was accomplished and smoking cessation was advised when indicated. BMI was noted and diet/exercise modification was recommended for all patients following outside normal parameters. I reviewed with the patient today their responsibilities to safeguard prescription medications, reviewed their responsibility to utilize medications only as prescribed by the physician. They are to seek and receive pain medications only from 1 physician group ( [facility]). They are to use 1 pharmacy and keep the clinic informed if they change pharmacies. Their responsibilities include making followup visits in a timely fashion and to avoid abrupt discontinuation of medication usage. Their responsibilities further include bringing their medications (bottles from the pharmacy with residual pills) to the visit for possible confirmation of pill counts and the patient understands it is their responsibility to submit to random drug screens to ensure both that the medications prescribed are present, and that no other controlled substances are present. All prescriptions provided today were generated electronically. PLAN: 1. We discussed treatment options with the patient today. The patient feels that her pain has been increasing between the dinner hour from 5-7. I recommended to her to move 1 of her 7pm Gabapentin to 4pm and see if this is benefcial. Then to continue her 7pm Gabapentin and Lyrica dose. She is to try this for several weeks. If she notices that she is not sleeping as well with more pain, then I encouraged her to take the morning gabapentin dose at 11:00 a.m. and continuing 2 gabapentin at bedtime. 2. Scripts will be sent electronically for Percocet , #90, for today, 4-week supply, Gabapentin 600 mg, #270 with one additional refill and Lyrica 75 mg #90 with one additional refill. 3. We did discuss possibly taking a zinc supplement as recommended by the CDC to help with combat COVID. The patient has been taking vitamin D3. We also discussed the possible vitamin C supplement. The patient is seen in collaboration with Dr. Colin Doyle. She will keep us apprised if her pain continues despite the changes of her gabapentin time. <ELECTRONICALLY SIGNED> By: Monique Cooley 07/07/20 1405 1025 1136 Monique Cooley /nt
== END ==
LOC: PAIN 06:51
PROVIDERS: ATTEND Clinical Nurse Specialist Adult Health
DX: B02.29 Other postherpetic nervous system involvement (principal); G89.29 Other chronic pain; F11.20 Opioid dependence, uncomplicated; Z79.899 Other long term (current) drug therapy; Z88.8 Allergy status to other drugs, medicaments and biological substances

== ENCOUNTER → 2020-09-15 | Outpatient (CLI) | payer OTHER ==
[~2020-09-15] VITALS: Ht 162.6 cm; Wt 68.9 kg
[2020-09-15 09:01] VITALS: BP 115/71
--- NOTE | 2020-09-15 09:13 | NUR ---
Pain Clinic Assessment: 1. History of Osteoarthritis: NO History of Rheumatoid Arthritis: NO 2. Height: 5 ft. 4 in. 162.6 cm. Weight: 152.0 lb. oz. 68.947 kg. Patient's BMI: 26.1 3. Vital Signs: BP: 115/71 Pulse: 56 Resp: 14 Temp: 02 Sat: 99 ECG Mon: 4. Pain Intensity: 2 5. Fall Risk: Dizziness: N Needs help standing or walking: N Fallen in the last 3 months: N Fall risk comments: 6. Patient on Blood Thinner: None 7. History of Hypertension: N 8. Opioid Therapy greater than 6 weeks: Y Opiate Contract Signed: 06/07/16 9. Risk Assessment Tool Provided: LOW RISK 2 10. Functional Assessment Tool: 11. Recreational Drug Use: Never Drug Type: Tobacco Use: Never Smoker Tobacco Type: Amount or Packs/day: How Many Years: Alcohol Use: Yes Frequency: Monthly Quant:
--- NOTE | 2020-09-15 13:02 | HPC ---
[facility] [address] [place] [address] PAIN MANAGEMENT CONSULTATION Name: THIEN MAIER Room #: REG [facility].#: [id number] Admission: 09/15/20 Attend Phys: Monique Cooley Discharge: Date of : 47 Report #: [id number] THIS REPORT FOR: cc: Concetta Quinteros MD, Sara A. MD Hocker,Monique Bui DATE OF SERVICE: 09/15/2020 CHIEF COMPLAINT: Postherpetic neuralgia. HISTORY OF PRESENT ILLNESS: As you know, this is a very pleasant 75-year-old female who continues to have ongoing pain issues as a result of her postherpetic neuralgia. She finds the medication combination that we prescribe for her very beneficial in controlling her pain. Today, she is rating her pain score at 2/10 along her chest and right arm area that was affected. Occasionally, she will have a burning sensation if she forgets to take her medication. If she continues on her course, she believes her pain does not interfere with any activities of daily living and barely notices her pain due to the regimen she adheres to. She denies any problems with constipation or daytime somnolence as a result of her medication regimen. Today, she is requesting refills. ALLERGIES: SULFA. CURRENT LIST OF MEDICATIONS: Gabapentin 600 mg in the morning, 1200 mg at night, Lyrica 75 mg daily, oxycodone 10/325 t.i.d. p.r.n., Nasacort, omeprazole, bimatoprost drops, metoprolol 25 mg in the morning, 50 mg at bedtime and Colace. PQRS: 1. She has no known arthritic changes of rheumatoid or osteoarthritis. 2. Height is 5 feet 4 inches, weight is 152, BMI is 26. 3. Vital signs 115/71, pulse is 56, respirations 14, oxygen sat is 99%. 4. Pain score is 2/10. 5. Denies dizziness, does not need any help walking or standing, has not fallen in the last 3 months. 6. The patient is not on any blood thinners or medicine for hypertension. 7. Opioid therapy is greater than 6 weeks; therefore, an opioid signed contract is on the chart. Risk assessment is low. Functional assessment is . 8. Recreational drug use, she denies. She is not a smoker and occasionally drinks alcohol. According to the prescription monitoring system, the patient is filling appropriately. She is due to fill her medications today. Her morphine milliequivalent is 45 MME. There is a drug screen on the chart that is appropriate for her medications. [address] [address] PAIN MANAGEMENT CONSULTATION Name: DARRIONTHIEN B Room #: REG [facility]EN[facility]ETTA Youssef#: [id number] Admission: 09/15/20 Attend Phys: Monique Cooley Discharge: Date of : 47 Report #: [id number] PHYSICAL EXAMINATION: GENERAL: This is alert and orientated, very pleasant 75-year-old female who appears her stated age, placing her current pain score of 2/10 today. She is a good historian. HEENT: Normocephalic, atraumatic. Extraocular eye muscles are intact. She is wearing a mask. EXTREMITIES: No clubbing, no cyanosis, no edema. MUSCULOSKELETAL: She has right chest wall pain that radiates into her right arm following the dermatomal distribution of her postherpetic neuralgia with some allodynia noted. No lesions present currently. Upper extremity strength is symmetrical at 5/5. We reviewed the fact that opiate medications are being used to provide analgesia adequate to support activities of daily living, not attempting to achieve a specific pain score on the 0-10 Visual Analog Scale. The current opiate medications are providing sufficient analgesia to allow the patient to participate in activities of daily living. The patient is not exhibiting any aberrant behavior suggestive of drug diversion. The patient is not having any adverse reactions to medications. The patient is not suffering from daytime somnolence or mental acuity changes. The patient is managing opiate-induced constipation with appropriate qsev-tto-ryqwmfn agents and dietary considerations. The patient was counseled on concern for caution with operating a motor vehicle while using opiate medications. PLAN: 1. We discussed treatment options with the patient today. The patient's pulse is slightly decreased today at 56. The patient reports having a Fitbit, has noticed that her pulses occasionally in the low 40s. I discussed with her the metoprolol medication and instructed her to call her primary care doctor to possibly adjust this medication. Her blood pressure today is stable at 115/71. Her last few visits, her pulse has been in the low 60s as well and the blood pressure has been stable. The patient denies any dizziness or lightheadedness sensation. She has noticed a decrease since she now has her Fitbit tracking her pulse on a daily basis. 2. We will continue her on her Percocet 10/325, #90, for a month's supply, 3 months will be sent electronically by Dr. Colin Doyle to her pharmacy. 3. The patient continues on gabapentin, and Lyrica, though no scripts are needed for this medication today. 4. We did discuss the COVID vaccine. The patient is planning on having the vaccine when it is offered to her. She continues to be safe at all times wearing a mask and is careful when she is being social with friends and family. [facility] [address] [place] [address] PAIN MANAGEMENT CONSULTATION Name: THIEN MAIER [facility] [id number] Admission: 09/15/20 Attend Phys: Monique Cooley Discharge: Date of : 47 Report #: [id number] 5. The patient is seen today in collaboration with Dr. Colin Doyle. She will return in 3 months. <ELECTRONICALLY SIGNED> By: Monique Cooley 09/15/20 1302 1043 1103 Monique Cooley /nt
== END ==
LOC: PAIN 06:47
PROVIDERS: ATTEND Clinical Nurse Specialist Adult Health
DX: B02.29 Other postherpetic nervous system involvement (principal)

== ENCOUNTER → 2020-12-16 | Outpatient (CLI) | payer OTHER ==
[~2020-12-16] VITALS: Ht 162.6 cm; Wt 68.7 kg
[2020-12-16 10:00] VITALS: BP 115/60
--- NOTE | 2020-12-16 10:15 | NUR ---
Pain Clinic Assessment: 1. History of Osteoarthritis: NO History of Rheumatoid Arthritis: NO 2. Height: 5 ft. 4 in. 162.6 cm. Weight: 151.4 lb. oz. 68.675 kg. Patient's BMI: 26.0 3. Vital Signs: BP: 115/60 Pulse: 74 Resp: 16 Temp: 02 Sat: 100 ECG Mon: 4. Pain Intensity: 2 5. Fall Risk: Dizziness: N Needs help standing or walking: N Fallen in the last 3 months: N Fall risk comments: 6. Patient on Blood Thinner: None 7. History of Hypertension: N 8. Opioid Therapy greater than 6 weeks: Y Opiate Contract Signed: 06/07/16 9. Risk Assessment Tool Provided: LOW RISK 2 10. Functional Assessment Tool: 11. Recreational Drug Use: Never Drug Type: Tobacco Use: Never Smoker Tobacco Type: Amount or Packs/day: How Many Years: Alcohol Use: Yes Frequency: Quant:
--- NOTE | 2020-12-16 12:00 | HPC ---
[facility] [place] [address] [place] [address] PAIN MANAGEMENT CONSULTATION Name: THIEN MAIER Room #: REG [facility].#: [id number] Admission: 12/16/20 Attend Phys: Colin Doyle DO Discharge: Date of : 47 Report #: [id number] THIS REPORT FOR: cc: Concetta Quinteros MD, Sara A. MD Johnson, James E. DO ~ DATE OF SERVICE: 12/16/2020 CHIEF COMPLAINT: Postherpetic neuralgia. HISTORY OF PRESENT ILLNESS: As you know, the patient is an extremely pleasant 75-year-old female returning in followup visit for continuation of medication management. She states the combination of medications, though unusual is providing excellent benefit with pain reported no greater than 2/10. The patient has been able to return to all activities of daily living without significant pain interference. She does experience intermittent constipation, which is treated well with gifq-mpd-ayksdey therapies. She returns today in followup visit requesting refill on medications. She indicates the pain when present is about 2/10, which is extremely tolerable for her. She is very pleased with response to medication, wishes no changes in therapy. ALLERGIES: SULFA. CURRENT MEDICATIONS: Gabapentin 600 mg morning and 1200 mg at night, Lyrica 75 mg p.o. q.a.m., oxycodone 10/325 one tab p.o. t.i.d. p.r.n. pain, Lopressor 50 mg once a day, bimatoprost 1 drop each eye per day, omeprazole 20 mg per day, Nasacort p.r.n. SOCIAL HISTORY: The patient denies tobacco, alcohol, IV or illicit drug use. She is retired, retired years ago, unaccompanied at today's visit. PQRS: The patient has no known arthritic changes. No rheumatoid arthritis. She indicates pain level 2/10. She is not a fall risk, has not had a fall in last 3 months. She is not on blood thinners, but is treated for hypertension. She is on chronic opioids, has a low opiate addiction potential based on our assessment tool. Pain impact is , mild interference of daily activities secondary to pain. PHYSICAL EXAMINATION: VITAL SIGNS: Blood pressure 115/60, pulse 74, respiratory rate 16 and unlabored. The patient is 100% on room air. Height 5 feet 4 inches tall, weight 151.4 pounds and BMI calculated 26.0. GENERAL: Well-developed, well-nourished, well-hydrated 75-year-old female appearing her stated age, pain is rated today 2/10. HEENT: Normocephalic, atraumatic. Pupils equal, round, and responsive. The patient is wearing a mask in compliance with COVID-[address] [address] PAIN MANAGEMENT CONSULTATION Name: THIEN MAIER Room #: REG [facility].#: [id number] Admission: 12/16/20 Attend Phys: Colin Doyle DO Discharge: Date of : 47 Report #: [id number] EXTREMITIES: Show no clubbing, no cyanosis, no edema. MUSCULOSKELETAL: The patient has no skin color changes on the area overlying her pain. She does have some allodynia and hyperalgesia that continues to be present, but has improved significantly. Her upper extremity strength appears symmetrical. Muscle bulk and tone is equal and symmetrical. ASSESSMENT: 1. Postherpetic neuralgia. 2. Opioid dependency. 3. Opioid-induced constipation. 4. Chronic intractable pain. PLAN: 1. The patient returns today in followup visit for continuation of medication therapy. She feels medications are working beneficially for pain control. She is denying any side effects with the medication including sleepiness, disorientation, confusion, or mental slowing. She is having some constipation issues, treated with Senokot-S successfully. We recommend she continue that treatment. If this continues to be problematic, we could consider the possible Linzess, Amitiza or possibly even addition of Movantik. At present, she is doing well. I will make no further adjustments on that therapy. She returns requesting refill on medications at current dosing. We reviewed the fact that opiate medications are being used to provide analgesia adequate to support activities of daily living, not attempting to achieve a specific pain score on the 0-10 Visual Analog Scale. The current opiate medications are providing sufficient analgesia to allow the patient to participate in activities of daily living. The patient is not exhibiting any aberrant behavior suggestive of drug diversion. The patient is not having any adverse reactions to medications. The patient is not suffering from daytime somnolence or mental acuity changes. The patient is managing opiate-induced constipation with appropriate yknx-ekt-nfwwizx agents and dietary considerations. The patient was counseled on concern for caution with operating a motor vehicle while using opiate medications. A physical exam was performed and the patient's functional status was evaluated. All patients with back pain were advised against the bed rest greater than 4 days and were advised to return to normal activities. Pain score assessment was noted and the treatment plan was reviewed with the patient. All current medications, both prescribed and OTC were reviewed and reconciled on the electronic medical record. Tobacco screening was accomplished and smoking cessation was advised when indicated. BMI was noted and diet/exercise modification was recommended for all patients following outside normal parameters. I reviewed with the patient today their responsibilities to [facility] [address] [place] [address] PAIN MANAGEMENT CONSULTATION Name: DARRIONTHIEN LONGORIA Room #: [facility] [id number] Admission: 12/16/20 Attend Phys: Colin Doyle DO Discharge: Date of : 47 Report #: [id number] prescription medications, reviewed their responsibility to utilize medications only as prescribed by the physician. They are to seek and receive pain medications only from 1 physician group ( [facility]). They are to use 1 pharmacy and keep the clinic informed if they change pharmacies. Their responsibilities include making followup visits in a timely fashion and to avoid abrupt discontinuation of medication usage. Their responsibilities further include bringing their medications (bottles from the pharmacy with residual pills) to the visit for possible confirmation of pill counts and the patient understands it is their responsibility to submit to random drug screens to ensure both that the medications prescribed are present, and that no other controlled substances are present. All prescriptions provided today were generated electronically. 3. The patient was provided prescription of Percocet 10/325 one tab every 8 hours p.r.n. for pain. I have given the patient #90 tablets to release today, 4 weeks from today, 8 weeks from today, 3 months' worth of medication. All prescriptions sent via e-scribe to local pharmacy. 4. The patient was provided refill prescription of Lyrica 75 mg dose 1 tab p.o. every day. I have given the patient #90, which is a 90-day supply. 5. The patient was provided refill prescription of gabapentin to take 1 in the morning, 2 at night. I have given the patient enough tablets to take as directed with refills for a 90-day supply. 6. 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 She has seen a Vascular Surgery who advised the patient to monitor and not to look toward surgical options as there does not appear to be any issues with the findings. She will follow up with him in 1 year. We discussed this in its entirety today. I am concurring with the vascular surgeon that she is having no concerning findings from this issue and monitoring would be most appropriate. 7. We plan to see the patient back in followup visit in 3 months for medication management. We are hopeful the patient will continue to see good and prolonged benefit allowing her to go about her activities of daily living with minimal pain from her postherpetic neuralgia. <ELECTRONICALLY SIGNED> By: Colin Doyle DO 12/16/20 1200 1104 1139 Colin Doyle DO /nt
== END ==
LOC: PAIN 06:47
PROVIDERS: ATTEND Anesthesiology Pain Medicine
DX: B02.29 Other postherpetic nervous system involvement (principal); F11.20 Opioid dependence, uncomplicated; K59.03 Drug induced constipation; G89.29 Other chronic pain

== ENCOUNTER → 2021-03-23 | Outpatient (CLI) | payer OTHER ==
[~2021-03-23] VITALS: Ht 162.6 cm; Wt 67.6 kg
[2021-03-23 09:01] VITALS: BP 135/83
--- NOTE | 2021-03-23 09:04 | NUR ---
Pain Clinic Assessment: 1. History of Osteoarthritis: NO History of Rheumatoid Arthritis: NO 2. Height: 5 ft. 4 in. 162.6 cm. Weight: 149.0 lb. oz. 67.586 kg. Patient's BMI: 25.6 3. Vital Signs: BP: 135/83 Pulse: 77 Resp: 16 Temp: 02 Sat: 99 ECG Mon: 4. Pain Intensity: 3 5. Fall Risk: Dizziness: N Needs help standing or walking: N Fallen in the last 3 months: N Fall risk comments: 6. Patient on Blood Thinner: None 7. History of Hypertension: N 8. Opioid Therapy greater than 6 weeks: Y Opiate Contract Signed: 06/07/16 9. Risk Assessment Tool Provided: LOW RISK 2 10. Functional Assessment Tool: 11. Recreational Drug Use: Never Drug Type: Tobacco Use: Never Smoker Tobacco Type: Amount or Packs/day: How Many Years: Alcohol Use: Yes Frequency: Monthly Quant: 1
--- NOTE | 2021-03-24 07:55 | HPC ---
[facility] [address] [place] [address] PAIN MANAGEMENT CONSULTATION Name: THIEN MAIER Room #: REG [facility]#: [id number] Admission: 03/23/21 Attend Phys: Monique Cooley Discharge: Date of : 47 Report #: [id number] THIS REPORT FOR: cc: Concetta Quinteros MD,Monique Gallegos MD ~ cc: Concetta Quinteros MD, Colin Doyle DO DATE OF SERVICE: 03/23/2021 CHIEF COMPLAINT: Postherpetic neuralgia. HISTORY OF PRESENT ILLNESS: As you know, this is a pleasant 75-year-old female who returns to the pain clinic today for renewal on her medications. Today, the patient is reporting a pain score of 3/10, mostly located on her right arm and radiates into her chest wall on the right side. She describes this pain as a burning sensation that is worse with activities and stress. She believes overall that her gabapentin, Lyrica and her oxycodone has been beneficial in decreasing her overall pain. Today, she would like renewals of these medications. She denies any constipation at this visit today. The patient does report that she most recently had a skin cancer removed on the posterior portion of her left leg, which required 14 stitches. She said she had clean margins. The patient reports having several skin cancers removed in the past. She also reports she is going to have a PET scan due to irregular heartbeat in early April. She is followed by remote sensing scientist for this. ALLERGIES: SULFA. CURRENT LIST OF MEDICATIONS: Oxycodone 10/325, Lyrica 75 mg, gabapentin 600 mg in the morning and 1200 mg at night, omeprazole and metoprolol 25 mg in the morning and 50 mg at night. PQRS: 1. She denies osteo or rheumatoid arthritis. Height is 5 feet 4 inches, weight is 149. BMI is 25. 2. Vital signs 135/83, pulse is 77, respirations 16, oxygen sat is 99%. 3. Pain score is 3/10. 4. Denies dizziness, does not need help walking or standing, has not fallen in the last 3 months. 5. The patient is not on any blood thinners. She is on medicines for hypertension as well as heart rate. 6. Opioid therapy is greater than 6 weeks; therefore, an opioid signed contract is on the chart. 7. Risk assessment is low. Functional assessment is . 8. Recreational drug use, she denies. She is not a smoker and occasionally drinks alcohol. [address] [address] PAIN MANAGEMENT CONSULTATION Name: DARRIONTHIEN B [id number] Admission: 03/23/21 Attend Phys: Monique Cooley Discharge: Date of : 46 Report #: [id number] According to the prescription monitoring system, the patient is filling appropriately in a timely fashion. She is due to fill her medications this week. Her morphine mEq according to the PDMP (prescription monitoring system) is 37.5. We will repeat her urine drug screen today. PHYSICAL EXAMINATION: GENERAL: This is a well-developed, well-nourished, well-hydrated 75-year-old female who appears her stated age, rating her current pain score today at 3/10. She is a good historian. HEENT: Normocephalic, atraumatic. Pupils equal, round and reactive to light. She is wearing a mask. EXTREMITIES: No clubbing, no cyanosis, no edema. MUSCULOSKELETAL: The patient does have allodynia and hyperalgesia that continues along her right arm and chest wall. Upper extremity strength is symmetrical at 5/5. She does have a healing site on the posterior left leg that is slightly red in color. Margins are approximated. IMPRESSION: 1. Postherpetic neuralgia. 2. Opioid dependency. 3. Opioid-induced constipation. 4. Chronic intractable pain. We reviewed the fact that opiate medications are being used to provide analgesia adequate to support activities of daily living, not attempting to achieve a specific pain score on the 0-10 Visual Analog Scale. The current opiate medications are providing sufficient analgesia to allow the patient to participate in activities of daily living. The patient is not exhibiting any aberrant behavior suggestive of drug diversion. The patient is not having any adverse reactions to medications. The patient is not suffering from daytime somnolence or mental acuity changes. The patient is managing opiate-induced constipation with appropriate wonw-mfx-yiskven agents and dietary considerations. The patient was counseled on concern for caution with operating a motor vehicle while using opiate medications. PLAN: 1. We discussed treatment options with the patient today. We will continue the patient on her gabapentin and Lyrica, which she finds very beneficial in helping to reduce her postherpetic neuralgia symptoms. She also finds the oxycodone is beneficial and we will have Dr. Colin Doyle send that electronically for , #90 for today 4 and 8 weeks release. 2. The patient reports that she is going on 2 trips in June. I encouraged her to make an appointment prior to going out of town and we will try to have her medications filled for vacation prior to her 2 trips that she will be taking. [address] [address] PAIN MANAGEMENT CONSULTATION Name: THIEN MAIER Room #: [facility]#: [id number] Admission: 03/23/21 Attend Phys: Monique Cooley Discharge: Date of : 46 Report #: [id number] Time spent with the patient today in consultation, reviewing pertinent imaging and recent studies, clinical notes and physician reports and physical examination and correlation of findings and medical documentation to determine possible treatment options 14 minutes. Time spent and preparation for appointment reviewing prescription monitoring system, reviewing previous records and proposed treatment options, reviewing current medications and obtaining urine drug screen, 6 minutes. Total time spent preparing and sending electronic prescriptions with collaborating physician, Dr. Colin Doyle and documentation of treatment and plan of treatment 5 minutes. Total time spent 25 minutes. <ELECTRONICALLY SIGNED> By: Monique Cooley 03/24/21 0755 [id number] 0011 Monique Cooley /primo
== END ==
LOC: PAIN 06:54
PROVIDERS: ATTEND Clinical Nurse Specialist Adult Health
DX: B02.29 Other postherpetic nervous system involvement (principal); G89.4 Chronic pain syndrome; Z79.899 Other long term (current) drug therapy; Z79.891 Long term (current) use of opiate analgesic; Z88.2 Allergy status to sulfonamides

== ENCOUNTER → 2021-06-15 | Outpatient (CLI) | payer OTHER ==
[~2021-06-15] VITALS: Ht 162.6 cm; Wt 66.7 kg
[2021-06-15 09:26] VITALS: BP 137/82
--- NOTE | 2021-06-15 09:33 | NUR ---
Pain Clinic Assessment: 1. History of Osteoarthritis: NO History of Rheumatoid Arthritis: NO 2. Height: 5 ft. 4 in. 162.6 cm. Weight: 147.0 lb. oz. 66.679 kg. Patient's BMI: 25.2 3. Vital Signs: BP: 137/82 Pulse: 77 Resp: 14 Temp: 02 Sat: 99 ECG Mon: 4. Pain Intensity: 3-4 5. Fall Risk: Dizziness: N Needs help standing or walking: N Fallen in the last 3 months: N Fall risk comments: 6. Patient on Blood Thinner: None 7. History of Hypertension: N 8. Opioid Therapy greater than 6 weeks: Y Opiate Contract Signed: 06/07/16 9. Risk Assessment Tool Provided: LOW RISK 2 10. Functional Assessment Tool: 11. Recreational Drug Use: Never Drug Type: Tobacco Use: Never Smoker Tobacco Type: Amount or Packs/day: How Many Years: Alcohol Use: Yes Frequency: Quant:
--- NOTE | 2021-06-15 14:39 | HPC ---
[facility] [address] [place] [address] PAIN MANAGEMENT CONSULTATION Name: THIEN MAIER Room #: REG [facility]#: [id number] Admission: 06/15/21 Attend Phys: Monique Cooley Discharge: Date of : 46 Report #: [id number] THIS REPORT FOR: cc: Concetta Quinteros MD, Sara A. MD Hocker, Amanda CNS ~ cc: Colin Doyle DO, Concetta Quinteros MD DATE OF SERVICE: 06/15/2021 CHIEF COMPLAINT: Postherpetic neuralgia. HISTORY OF PRESENT ILLNESS: This is a very pleasant 76-year-old female who is well known to the clinic for her ongoing postherpetic neuralgia. She continues to have pain on the right chest wall and under her right arm as a result of her shingles in the past. Today, she is also complaining of some jerky sensation in her right arm. She describes her pain as an achy, stinging sensation that is worse with certain activities and sitting. She feels the medication of oxycodone and her neuropathic medicines are very beneficial in helping reduce her pain overall. The patient reports that she has had her third COVID vaccine and her flu vaccine two weeks ago. She is getting ready to [place] and she is trying to make sure she is well covered against any illness that she may encounter. The patient does report some constipation issues with her medications and does take probiotic as well as Karina-Colace and gummy fibers on a daily basis. ALLERGIES: SULFA. CURRENT LIST OF MEDICATIONS: Oxycodone 10/325 p.r.n., Lyrica 75 mg every day, gabapentin 600 mg in the morning, 1200 mg at night, Nasacort, metoprolol 25 mg in the morning and 50 mg at night, Biotin probiotic. PQRS: 1. She has known osteo or rheumatoid arthritis issues. Height is 5 feet 4 inches, weight is 147. BMI is 25. 2. Vital signs: 137/82, pulse is 77, respirations 14, oxygen sat is 99%. 3. Pain score is 3-4. 4. Denies dizziness, does not need help walking or standing, has not fallen in the last 3 months. 5. The patient is not on any blood thinners, but does take medication for hypertension. 6. Opioid therapy is greater than 6 weeks; therefore, an opioid signed contract is on the chart. 7. Risk assessment is low. Functional assessment is . 8. Recreational drug use, she denies. She is not a smoker and occasionally drinks alcohol. [address] [address] PAIN MANAGEMENT CONSULTATION Name: DARRIONTHIEN [facility] [id number] Admission: 06/15/21 Attend Phys: Monique Cooley Discharge: Date of : 47 Report #: [id number] According to the prescription monitoring system, the patient is filling appropriately in a timely fashion. She is due to fill her medications this week. There is a drug screen on the chart from her last visit that is appropriate. Her morphine mEq according to the CDC guidelines is 37 or below. PHYSICAL EXAMINATION: GENERAL: This is alert and orientated, well-developed, well-nourished, well-hydrated 76-year-old female who appears her stated age, rating her current pain score at 3-4. HEENT: Normocephalic, atraumatic. Pupils equal, round and reactive. She is wearing a mask for COVID precautions. Speech is fluent. EXTREMITIES: No clubbing, no cyanosis, no edema. MUSCULOSKELETAL: The patient has some hyperalgesia that continues to be present in her right chest wall. Upper extremity strength is symmetrical. She does have some allodynia present as well with no skin color changes at her herpetic site. ASSESSMENT: 1. Postherpetic neuralgia. 2. Opioid dependency. 3. Opioid-induced constipation. 4. Chronic intractable pain. We reviewed the fact that opiate medications are being used to provide analgesia adequate to support activities of daily living, not attempting to achieve a specific pain score on the 0-10 Visual Analog Scale. The current opiate medications are providing sufficient analgesia to allow the patient to participate in activities of daily living. The patient is not exhibiting any aberrant behavior suggestive of drug diversion. The patient is not having any adverse reactions to medications. The patient is not suffering from daytime somnolence or mental acuity changes. The patient is managing opiate-induced constipation with appropriate vhmc-lwy-xywswdt agents and dietary considerations. The patient was counseled on concern for caution with operating a motor vehicle while using opiate medications. PLAN: 1. We discussed treatment options with the patient today. The patient does find her medications beneficial in controlling her pain, would like to continue her oxycodone 10/325, #90. Scripts sent electronically by Dr. Doyle to her pharmacy for 3 months. 2. We will continue her as well on her Lyrica. The patient takes these every morning. Scripts sent electronically for 75 mg capsules, #90 with one refill to our [facility]. The patient does continue to take gabapentin, but no scripts needed today. 3. The patient is complaining that she is not sleeping well at night, waking up [address] [address] PAIN MANAGEMENT CONSULTATION Name: THIEN MAIER Room #: REG [facility]#: [id number] Admission: 06/15/21 Attend Phys: Monique Cooley Discharge: Date of : 46 Report #: [id number] earlier than she had in the past and only having about 5 hours of sleep. I encouraged her to try to alter the time of medications taken in the evening to a couple hours later to see if this helps prolong her sleep. I also encouraged her not to nap at all during the day and not to do things that will stimulate her while she wakes in the middle of the night. 4. We did discuss the patient's intermittent jerky. Dr. Colin Doyle believes it may be from her neuropathic medication. She has no tremors noted. The patient instructed that if it continues to worsen, we may decrease her neuropathic and see if those symptoms improve. Time spent with patient in consultation, reviewing pertinent imaging, reviewing recent studies and clinical notes and physician reports, physical examination and correlation of findings and medical documentation in need to determine possible treatment options 12 minutes. Time spent in preparation for appointment, reviewing prescription monitoring system reports, reviewing previous records and proposed treatment options, and reviewing current medications 5 minutes. Time spent preparing and sending electronic prescriptions with collaborating physician, Dr. Colin Doyle who did see the patient as well, documentation of visit and plan of treatment 5 minutes. Total time spent 22 minutes. <ELECTRONICALLY SIGNED> By: Monique Cooley 06/15/21 1439 1015 1221 Monique Cooley /primo
== END ==
LOC: PAIN 06:48
PROVIDERS: ATTEND Clinical Nurse Specialist Adult Health
DX: B02.29 Other postherpetic nervous system involvement (principal); Z79.891 Long term (current) use of opiate analgesic; Z79.899 Other long term (current) drug therapy; G89.4 Chronic pain syndrome

== ENCOUNTER → 2021-09-08 | Outpatient (CLI) | payer OTHER ==
[~2021-09-08] VITALS: Ht 162.6 cm; Wt 67.0 kg
[2021-09-08 10:06] VITALS: BP 129/75
--- NOTE | 2021-09-08 10:21 | NUR ---
Pain Clinic Assessment: 1. History of Osteoarthritis: NO History of Rheumatoid Arthritis: NO 2. Height: 5 ft. 4 in. 162.6 cm. Weight: 147.6 lb. oz. 66.951 kg. Patient's BMI: 25.3 3. Vital Signs: BP: 129/75 Pulse: 69 Resp: 16 Temp: 02 Sat: 98 ECG Mon: 4. Pain Intensity: 3-4 5. Fall Risk: Dizziness: N Needs help standing or walking: N Fallen in the last 3 months: N Fall risk comments: 6. Patient on Blood Thinner: None 7. History of Hypertension: N 8. Opioid Therapy greater than 6 weeks: Y Opiate Contract Signed: 06/07/16 9. Risk Assessment Tool Provided: LOW RISK 2 10. Functional Assessment Tool: 11. Recreational Drug Use: Never Drug Type: Tobacco Use: Never Smoker Tobacco Type: Amount or Packs/day: How Many Years: Alcohol Use: Yes Frequency: Quant:
--- NOTE | 2021-09-09 11:00 | HPC ---
[facility] [address] [place] [address] PAIN MANAGEMENT CONSULTATION Name: THIEN MAIER Room #: REG [facility]#: [id number] Admission: 09/08/21 Attend Phys: Monique Cooley Discharge: Date of : 46 Report #: [id number] THIS REPORT FOR: cc: Concetta Quinteros MD,Monique Gallegos MD ~ cc: Concetta Quinteros MD, Colin Doyle DO DATE OF SERVICE: 09/08/2021 CHIEF COMPLAINT: Postherpetic neuralgia. HISTORY OF PRESENT ILLNESS: As you know, this is a very pleasant 76-year-old female who continues to suffer from postherpetic neuralgia along her right chest wall, radiates into her back as well as her arm at times. Today, she is rating her pain score 3-4, complaining of a stingy sensation. Her pain she feels is worse with activity, but feels the medication are beneficial. At times, recently, she has noticed that she may have increasing pain when her medications are due to be taken and that is new for her. She does have some constipation issues and takes xzag-lxv-dlpswko fiber gummies and stool softeners. The patient states that she recently went on a trip to [place] and that activity did not increase her pain. She reports that she was safe for COVID during that time, she has had her COVID booster as well as her flu shot. ALLERGIES: SULFA. CURRENT LIST OF MEDICATIONS: Gabapentin 600 mg in the morning, 1200 at night; Lyrica 75 mg tablets; oxycodone 10/325 p.r.n.; metoprolol twice a day. PQRS: 1. She denies any osteo or rheumatoid arthritis. Height is 5 feet 4 inches, weight is 147. BMI is 25. 2. Vital signs: Blood pressure 129/75, pulse is 69, respirations 16, oxygen sat is 98%. 3. Pain score is 3-4. 4. Denies dizziness, does not need help walking or standing, has not fallen in the last 3 months. 5. The patient is not on any blood thinners, does take medicine for hypertension. 6. Opioid therapy is greater than 6 weeks; therefore, an opioid signed contract is on the chart. 7. Risk assessment is low. Functional assessment is . 8. Recreational drug use, she denies. She is not a smoker and occasionally drinks alcohol. According to the prescription monitoring system, the patient is filling [address] [address] PAIN MANAGEMENT CONSULTATION Name: THIEN MAIER Room #: REG [facility].#: [id number] Admission: 09/08/21 Attend Phys: Monique Cooley Discharge: Date of : 47 Report #: [id number] appropriately. She is not due to fill her medications until mid September. There is an opioid drug screen on the chart that is appropriate for her medications. PHYSICAL EXAMINATION: GENERAL: This is alert and orientated, well-developed, well-nourished 76-year-old female who appears her stated age, rating her current pain score today at 3-4 depending on activity. HEENT: Normocephalic, atraumatic. Pupils equal, round and reactive. The patient is wearing a mask in compliance for COVID regulations. EXTREMITIES: No clubbing, no cyanosis, no edema. MUSCULOSKELETAL: The patient does have some allodynia and hyperalgesia noted, continues to be present in her chest wall. Upper extremity strength appears symmetrical. The patient has no skin changes in the area overlying her pain area. Upper extremity strength is symmetrical. 5/5 muscle bulk and tone is symmetrical. ASSESSMENT: 1. Postherpetic neuralgia. 2. Opioid dependency. 3. Opioid-induced constipation. 4. Chronic intractable pain, utilizing scheduled medications. According to the prescription monitoring system, the patient is filling appropriate for her medications. Her morphine mEq is 45 mEq and there is a urine drug screen that is appropriate. We reviewed the fact that opiate medications are being used to provide analgesia adequate to support activities of daily living, not attempting to achieve a specific pain score on the 0-10 Visual Analog Scale. The current opiate medications are providing sufficient analgesia to allow the patient to participate in activities of daily living. The patient is not exhibiting any aberrant behavior suggestive of drug diversion. The patient is not having any adverse reactions to medications. The patient is not suffering from daytime somnolence or mental acuity changes. The patient is managing opiate-induced constipation with appropriate fhxz-mtd-ywxwghs agents and dietary considerations. The patient was counseled on concern for caution with operating a motor vehicle while using opiate medications. A physical exam was performed and the patient's functional status was evaluated. All patients with back pain were advised against the bed rest greater than 4 days and were advised to return to normal activities. Pain score assessment was noted and the treatment plan was reviewed with the patient. All current medications, both prescribed and OTC were reviewed and reconciled on the electronic medical record. Tobacco screening was accomplished and smoking cessation was advised when indicated. BMI was noted and diet/exercise modification was recommended for all patients following outside normal parameters. [address] [address] PAIN MANAGEMENT CONSULTATION Name: THIEN MAIER Room #: REG [facility]#: [id number] Admission: 09/08/21 Attend Phys: Monique Cooley Discharge: Date of : 46 Report #: [id number] I reviewed with the patient today their responsibilities to safeguard prescription medications, reviewed their responsibility to utilize medications only as prescribed by the physician. They are to seek and receive pain medications only from 1 physician group ( [facility]). They are to use 1 pharmacy and keep the clinic informed if they change pharmacies. Their responsibilities include making followup visits in a timely fashion and to avoid abrupt discontinuation of medication usage. Their responsibilities further include bringing their medications (bottles from the pharmacy with residual pills) to the visit for possible confirmation of pill counts and the patient understands it is their responsibility to submit to random drug screens to ensure both that the medications prescribed are present, and that no other controlled substances are present. All prescriptions provided today were generated electronically. PLAN: 1. We discussed treatment options with the patient today. At her last visit, the patient had mentioned she was having tremors that are more intentional when she uses her iPhone. The patient has not noticed any increasing issues with her tremors. We did discuss if they do become worsening, we may decrease her neuropathy medications as a trial to see if this helps the intentional tremors. At this time, we will remain on her current regimen. Sending her gabapentin 600 mg tablets #270 with 3 refills electronically to her pharmacy. 2. The patient does continue her Lyrica as well, but no prescriptions needed for that medication today. 3. The patient will continue her oxycodone , #90. Three prescriptions will be sent electronically by Dr. Colin Doyle for her to fill in September, October and November. 4. The patient will return in December for an appointment at that time. Time spent with the patient in consultation, reviewing pertinent imaging, reviewing recent studies and clinical notes and physician reports, physical examination and correlation of findings, medical documentation needed to determine possible treatment options, 13 minutes. Time spent preparing for appointment, reviewing prescription monitoring system reports, reviewing previous records and proposed treatment options, reviewing current medications, 5 minutes. Time spent preparing and sending electronic prescriptions with collaborating physician, Dr. Colin Doyle, and documentation of visit and plan of treatment, 5 [place] [address] PAIN MANAGEMENT CONSULTATION Name: THIEN MAIER Room #: REG [facility]#: [id number] Admission: 09/08/21 Attend Phys: Monique Cooley Discharge: Date of : 47 Report #: [id number] Total time spent 23 minutes. <ELECTRONICALLY SIGNED> By: Monique Coolye 09/09/21 1100 0938 02 Monique Cooley /nt
== END ==
LOC: PAIN 07:03
PROVIDERS: ATTEND Clinical Nurse Specialist Adult Health
DX: G89.29 Other chronic pain (principal); B02.29 Other postherpetic nervous system involvement; K59.03 Drug induced constipation; F11.20 Opioid dependence, uncomplicated; Z88.8 Allergy status to other drugs, medicaments and biological substances; Z79.899 Other long term (current) drug therapy